=== PATIENT | male | born 1995 | race African-American/Black ===

== ENCOUNTER 2019-05-17 15:25 | Emergency (ER) | payer BC, SELFPAY ==
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
--- NOTE | 2019-05-17 15:28 | ECG_ITS ---
Measurements Intervals [place] Rate: 84 P: 59 WI: 154 QRS: 28 QRSD: 98 T: 12 QT: 324 QTc: 385 Interpretive Statements SINUS RHYTHM WITH SINUS ARRHYTHMIA LEFT ATRIAL ENLARGEMENT BASELINE ARTIFACT- I, III BORDERLINE ECG Electronically Signed On 05-17-2019 16:54:41 [employer] by Feliz Arias D.O.
[2019-05-17 15:31] VITALS: BP 151/98; PULSE 88; RESP 18; TEMP 36.8; O2SAT 99
[2019-05-17 15:38] VITALS: PULSE 89
[2019-05-17 15:50] LABS: Basophils Absolute Auto 0.1 K/mm3 (0.0-0.1); Basophils Percent Auto 0.9 % (0.2-1.2); Eosinophils Absolute Auto 0.2 K/mm3 (0-0.3); Eosinophils Percent Auto 1.9 % (0-4.4); Hematocrit 39.5 % (42.0-52.0); Hemoglobin 13.2 g/dL (14.0-18.0); Immature Granulocyte Absolute 0.04 K/mm3 (0.00-0.031); Immature Granulocyte Percent A 0.4 % (0-0.5); Lymphocytes Absolute Auto 2.77 K/mm3 (0.9-3.2); Lymphocytes Percent Auto 29.8 % (18.3-44.2); Mean Corpuscular HGB Conc 33.4 g/dl (32-36); Mean Corpuscular Hemoglobin 26.8 pg (26-34); Mean Corpuscular Volume 80.3 fl (80-100); Mean Platelet Volume 9.7 fl (7.4-10.4); Monocytes Absolute Auto 1.1 K/mm3 (0.1-0.6); Monocytes Percent Auto 11.8 % (2.6-8.5); Neutrophils Absolute Auto 5.1 K/mm3 (1.3-6.7); Neutrophils Percent Auto 55.2 % (45.5-73.1); Platelet Count Result 346 k/mm3 (150-375); Red Blood Count 4.92 M/mm3 (4.6-6.20); Red Cell Distribution Width 13.8 % (11.5-14.5); White Blood Count 9.3 K/mm3 (4.5-10.0)
[2019-05-17 15:59] LABS: Blood Urea Nitrogen 14 mg/dL (9-20); Calcium 8.9 mg/dL (8.4-10.2); Carbon Dioxide 29 mmol/L (22-30); Chloride 104 mmol/L (98-107); Estimated CRCL calculation 148 ml/min; Estimated Glomerular Filt Rate > 60; Glucose 85 mg/dL (75-110); Potassium 4.1 mmol/L (3.4-5.0); Sodium 140 mmol/L (137-145)
[2019-05-17 16:10] VITALS: O2SAT 99
[2019-05-17 16:10] LABS: Troponin I < 0.012 ng/mL (0.000-0.034)
[2019-05-17 16:13] LABS: Prothrombin Time 13.2 Seconds (11.1-14.7)
[2019-05-17 16:14] LABS: Partial Thromboplastin Time 29.4 SECONDS (22.3-36.8)
[2019-05-17] MEDS: ASPIRIN 81 MG CHEWABLE TABLET 324 MG PO (16:24)
--- NOTE | 2019-05-17 16:26 | ED.CHESTPAIN ---
HPI - Chest Pain General Chief Complaint: Chest Pain Stated Complaint: sob, cp Time Seen by Provider: 05/17/19 16:14 Source: patient Mode of arrival: ambulatory Limitations: no limitations History of Present Illness HPI narrative: A 23 y/o male presents to the ED with c/o right sided CP that radiates to his right flank. Pt states that the right sided CP started when he woke up this morning and has been constant since. The CP is aggravated with movement, but he does not note any alleviating factors. He denies dysuria and hematuria. Pt has no other complaints at this time. complaint: chest pain (Right sided) Onset (ago): hour(s) (Today) Timing of current episode: constant Onset: awoke with symptoms Pain location: right chest Pain radiation: other (Right flank) Relieving factors: nothing Exacerbating factors: movement Associated symptoms: other (None) Related Data Allergies Allergy/AdvReac Type Severity Reaction Status Date / Time No Known Allergies Allergy Verified 05/17/19 15:44 Review of Systems Review of Systems: All systems reviewed & are unremarkable except as noted in HPI and below Cardiovascular: Cardiovascular: Reports chest pain (Right sided that radiates to right flank) Genitourinary: Genitourinary: Denies hematuria and Denies dysuria PMFSH Past Medical History Medical History (Updated 05/17/19 @ 17:26 by Charlie Woods MD) Seasonal allergies Surgical History Surgical History (Updated 05/17/19 @ 16:34 by Mary Rubin) No pertinent past surgical history Social History Social History (Updated 05/17/19 @ 16:34 by Mary Rubin) Smoking status: Unknown if ever smoked Gender identity (if verbalized by the patient): Male Exam Const: General: healthy appearing, no acute distress and well developed Nutritional Appearance: well nourished Orientation/consciousness: patient oriented x3 (alert) and Other orientation findings (Alert) Limitations: no limitations HENMT: Head: normocephalic and atraumatic Ears: external ears normal General nose exam: No nasal discharge present and no epistaxis Face and sinus: face symmetric Mouth: Yes lip normal, Yes tongue normal and Yes moist mucous membranes Throat: other (No exudate, no erythema) Eyes: Conjunctivae: conjunctivae normal Sclera: sclerae normal EOM: EOMs intact bilaterally Neck: Neck: full ROM, no lymphadenopathy and supple Thyroid: thyroid normal Chest: Chest palpation & inspection: no tenderness Resp: Effort & Inspection: normal respiratory effort Auscultation: clear to auscultation bilaterally, no rales, no rhonchi, no wheezes and other (breath sounds equal) Cardio: Rate: regular rate Rhythm: regular rhythm Heart sounds: no gallops and no murmurs GI: Inspection: non-distended GI Palp: No abdominal tenderness (RUQ) and Yes Soft to palpation Auscultation: other (bowel sounds present) : General: Yes no CVA tenderness Back/Spine/Pelvis: Back: no CVA tenderness and other (Symptoms reproducible with twisting and laterally flexing torso) Thoracic/Lumbar Spine: thoracic and lumbar spine normal to inspection Skin: General skin exam: normal color and no rashes or lesions noted Neuro: General: patient oriented x3 (alert), moves all extremities and no focal motor deficits Cranial nerves: Yes facial symmetry Speech: normal speech Motor exam (neuro): Motor abnormalities not present Extrem: General: normal to inspection, full ROM and no pedal edema Psych: Affect: normal affect Course Vital Signs Vital signs: Vital Signs Temperature 36.8 C 05/17/19 15:31 Pulse Rate 88 05/17/19 15:31 Respiratory Rate 18 05/17/19 15:31 Blood Pressure 151/98 H 05/17/19 15:31 Pulse Oximetry 99 05/17/19 15:31 Temperature 36.8 C 05/17/19 15:31 Pulse Rate 89 05/17/19 15:38 Respiratory Rate 18 05/17/19 15:31 Blood Pressure 151/98 H 05/17/19 15:31 Pulse Oximetry 99 05/17/19 15:31 MDM - Chest Pain Lab Data Resul
[2019-05-17 16:53] LABS: Alanine Aminotransferase 22 U/L (4-50); Albumin Level 4.3 g/dL (3.5-5.1); Alkaline Phosphatase 68 U/L (38-126); Aspartate Amino Transferase 30 U/L (17-59); Bilirubin,Total 0.4 mg/dL (0.2-1.3); Lipase 85 U/L (23-300)
[2019-05-17 18:00] VITALS: BP 140/90; PULSE 86; RESP 14; O2SAT 99
== END 2019-05-17 18:05 | disposition home or self-care (01) ==
PROVIDERS: Emergency Medicine; Emergency Provider Emergency Medicine
DX: R07.89 Other chest pain (principal); R94.31 Abnormal electrocardiogram [ECG] [EKG]
CPT/HCPCS: 36415; 71046; 80048; 80076; 83690; 84484; 85025; 85610; 85730; 93005; 99284; A9270

== ENCOUNTER 2019-11-28 12:25 | Emergency (ER) | payer BC, SELFPAY ==
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
[2019-11-28 12:44] VITALS: BP 119/76; PULSE 82; RESP 17; TEMP 36.2; O2SAT 99
--- NOTE | 2019-11-28 12:44 | ECG_ITS ---
Measurements Intervals [place] Rate: 85 P: 50 [place]: 159 QRS: 21 QRSD: 93 T: 11 QT: 334 QTc: 399 Interpretive Statements SINUS RHYTHM POSSIBLE LEFT ATRIAL ENLARGEMENT BORDERLINE ECG Electronically Signed On 11-28-2019 13:46:55 CDT by Feliz Arias D.O.
[2019-11-28 12:57] LABS: Basophils Absolute Auto 0.1 K/mm3 (0.0-0.1); Basophils Percent Auto 0.8 % (0.2-1.2); Eosinophils Absolute Auto 0.3 K/mm3 (0-0.3); Hematocrit 41.5 % (42.0-52.0); Hemoglobin 13.9 g/dL (14.0-18.0); Immature Granulocyte Absolute 0.03 K/mm3 (0.00-0.031); Immature Granulocyte Percent A 0.4 % (0-0.5); Lymphocytes Absolute Auto 2.07 K/mm3 (0.9-3.2); Lymphocytes Percent Auto 24.8 % (18.3-44.2); Mean Corpuscular HGB Conc 33.5 g/dl (32-36); Mean Corpuscular Hemoglobin 26.8 pg (26-34); Mean Corpuscular Volume 80.1 fl (80-100); Monocytes Percent Auto 11.8 % (2.6-8.5); Neutrophils Absolute Auto 4.9 K/mm3 (1.3-6.7); Neutrophils Percent Auto 59.2 % (45.5-73.1); Platelet Count Result 364 k/mm3 (150-375); Red Blood Count 5.18 M/mm3 (4.6-6.20); Red Cell Distribution Width 13.9 % (11.5-14.5); White Blood Count 8.3 K/mm3 (4.5-10.0)
[2019-11-28 13:07] LABS: Prothrombin Time 13.3 Seconds (11.1-14.7)
[2019-11-28 13:08] LABS: Partial Thromboplastin Time 28.1 SECONDS (22.3-36.8)
[2019-11-28 13:09] LABS: Anion Gap 6 mmol/L (8-16); Blood Urea Nitrogen 10 mg/dL (9-20); Carbon Dioxide 28 mmol/L (22-30); Chloride 103 mmol/L (98-107); Estimated CRCL calculation 150 ml/min; Estimated Glomerular Filt Rate > 60; Glucose 108 mg/dL (75-110); Potassium 4.1 mmol/L (3.4-5.0); Sodium 137 mmol/L (137-145)
[2019-11-28 13:21] LABS: Troponin I < 0.012 ng/mL (0.000-0.034)
[2019-11-28 14:34] VITALS: BP 138/88; PULSE 86; RESP 17; O2SAT 98
[2019-11-28 14:35] VITALS: PULSE 88
--- NOTE | 2019-11-28 14:45 | ED.CHESTPAIN ---
HPI - Chest Pain General Chief Complaint: Chest Pain Stated Complaint: CP/BEE Time Seen by Provider: 11/28/19 14:26 History of Present Illness HPI narrative: Sharp substernal chest pain. First noticed 1 week ago. Worse over the ast 2 days. Increases with food. Associated with mild SOB. He has not tried anything for his symptoms. Related Data Allergies Allergy/AdvReac Type Severity Reaction Status Date / Time No Known Allergies Allergy Verified 11/28/19 12:50 Review of Systems Review of Systems: All systems reviewed & are unremarkable except as noted in HPI and below Constitutional: Constitutional: Denies chills and Denies fever(s) Cardiovascular: Cardiovascular: Denies chest pain Respiratory: Respiratory: Denies cough and Denies dyspnea Gastrointestinal: Gastrointestinal: Denies nausea and Denies vomiting Neurologic: Denies numbness and Denies weakness PMFSH Past Medical History Medical History Seasonal allergies Surgical History Surgical History No pertinent past surgical history Social History Social History Smoking status: Unknown if ever smoked Gender identity (if verbalized by the patient): Male Exam Const: General: no acute distress Orientation/consciousness: patient oriented x3 HENMT: Head: normal to inspection Neck: Neck: normal visual inspection and no lymphadenopathy Chest: Chest palpation & inspection: no tenderness Resp: Effort & Inspection: normal respiratory effort Auscultation: clear to auscultation bilaterally, no rales, no rhonchi and no wheezes Cardio: Jugular venous distension: no JVD Rate: regular rate Rhythm: regular rhythm Heart sounds: no murmurs GI: Inspection: non-distended GI Palp: Yes Soft to palpation and No Tenderness to palpation present (GI) Skin: General skin exam: normal color Neuro: General: patient oriented x3 and moves all extremities Speech: normal speech Extrem: General: no edema Psych: Appearance: well kempt Affect: normal affect Course Vital Signs Vital signs: Vital Signs Temperature 36.2 C L 11/28/19 12:44 Pulse Rate 82 11/28/19 12:44 Respiratory Rate 17 11/28/19 12:44 Blood Pressure 119/76 11/28/19 12:44 Pulse Oximetry 99 11/28/19 12:44 Temperature 36.2 C L 11/28/19 12:44 Pulse Rate 75 11/28/19 15:55 Respiratory Rate 16 11/28/19 15:55 Blood Pressure 138/88 11/28/19 15:55 Pulse Oximetry 98 11/28/19 15:55 MDM - Chest Pain MDM Narrative Medical decision making narrative: Feeling better after GI cocktail Medical Records Data Attestation: I reviewed the patient's medical records. Lab Data Attestation: I reviewed the patient's lab results. Result diagrams: 11/28/19 12:48 11/28/19 12:48 Labs: Lab Results 11/28/19 11/28/19 11/28/19 Range/Units 12:48 12:48 12:48 WBC 8.3 (4.5-10.0) K/mm3 RBC 5.18 (4.6-6.20) M/mm3 Hgb 13.9 L (14.0-18.0) g/dL Hct 41.5 L (42.0-52.0) % MCV 80.1 (80-100) fl MCH 26.8 (26-34) pg MCHC 33.5 (32-36) g/dl RDW 13.9 (11.5-14.5) % Plt Count 364 (150-375) k/mm3 MPV 10.0 (7.4-10.4) fl Immature Gran % (Auto) 0.4 (0-0.5) % Neut % (Auto) 59.2 (45.5-73.1) % Lymph % (Auto) 24.8 (18.3-44.2) % [place] % (Auto) 11.8 H (2.6-8.5) % Eos % (Auto) 3.0 (0-4.4) % Baso % (Auto) 0.8 (0.2-1.2) % Lymph # (Auto) 2.07 (0.9-3.2) K/mm3 [place] # (Auto) 1.0 H (0.1-0.6) K/mm3 Eos # (Auto) 0.3 (0-0.3) K/mm3 Baso # (Auto) 0.1 (0.0-0.1) K/mm3 Abs Immat Gran (auto) 0.03 (0.00-0.031) K/mm3 Absolute Neuts (auto) 4.9 (1.3-6.7) K/mm3 Absolute Nucleated RBC 0.0 (0.0-0.012) K/mm3 Nucleated RBC % 0.0 (0.0-0.2) % PT 13.3 (11.1-14.7) Seconds INR 1.0 APTT 28.1 (22.3-36.8) SECONDS Néstori
[2019-11-28] MEDS: ASPIRIN 81 MG CHEWABLE TABLET 324 MG PO (15:05)
[2019-11-28 15:08] VITALS: BP 133/89; PULSE 82; RESP 17; O2SAT 100
[2019-11-28 15:55] VITALS: BP 138/88; PULSE 75; RESP 16; O2SAT 98
== END 2019-11-28 16:01 | disposition home or self-care (01) ==
PROVIDERS: Emergency Medicine; Emergency Provider Emergency Medicine
DX: K21.9 Gastro-esophageal reflux disease without esophagitis (principal)
CPT/HCPCS: 36415; 71046; 80048; 84484; 85025; 85610; 85730; 93005; 99284; A9270

== ENCOUNTER 2020-02-17 03:10 | Emergency (ER) | payer BC, SELFPAY ==
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
[2020-02-17 03:13] VITALS: BP 143/85; PULSE 84; RESP 16; TEMP 36; O2SAT 99
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
[2020-02-17] MEDS: KETOROLAC (*BKC) 60 MG/2 ML VIAL IM (03:35)
[2020-02-17 04:39] VITALS: BP 140/89; PULSE 84; RESP 16; O2SAT 97
== END 2020-02-17 04:40 | disposition home or self-care (01) ==
PROVIDERS: Emergency Provider Emergency Medicine
DX: M25.512 Pain in left shoulder (principal); J45.909 Unspecified asthma, uncomplicated
CPT/HCPCS: 71046; 96372; 99283; J1885

== ENCOUNTER 2020-03-04 18:19 | Emergency (ER) | payer BC, SELFPAY ==
--- NOTE | ~2020-03-04 | CT_ITS ---
EXAMINATION: CT abdomen pelvis w con DATE: 03/04/2020 20:09 INDICATION: Epigastric pain TECHNIQUE: Computed tomography (CT) of the abdomen and pelvis was performed with 100 cc Omnipaque 350 intravenous contrast. The dose-length product was 1281.22 mGy-cm. Automated exposure control and ite rative reconstruction technique were employed. COMPARISON: None. FINDINGS: Lung bases are unremarkable. Heart size normal. No significant pleural or pericardial effus ion. No significant vascular abnormality. No lymphadenopathy. Subtle hypodensity right hepatic lobe, too small to characterize, possibly transient hepatic attenuat ion difference. The spleen, pancreas, adrenal glands and kidneys are unremarkable. Gallbladder is pre sent. Normal appendix. Gallbladder is present. Nonobstructive bowel gas pattern. No free air or free fluid. No acute osseous abnormality. IMPRESSION: 1. No acute abdominal abnormality. No findings to account for patient's symptoms. Reviewed, dictated and finalized at location A. IC TRANSIT SPECIALIST IMPRESSION: 1. No acute abdominal abnormality. No findings to account for patient's symptom s.
[2020-03-04 18:24] VITALS: BP 135/85; PULSE 121; RESP 16; TEMP 36.6; O2SAT 94
[2020-03-04 19:10] LABS: Basophils Absolute Auto 0.1 K/mm3 (0.0-0.1); Basophils Percent Auto 0.4 % (0.2-1.2); Eosinophils Absolute Auto 0.1 K/mm3 (0-0.3); Eosinophils Percent Auto 1.2 % (0-4.4); Hematocrit 41.3 % (42.0-52.0); Hemoglobin 13.9 g/dL (14.0-18.0); Immature Granulocyte Absolute 0.05 K/mm3 (0.00-0.031); Immature Granulocyte Percent A 0.4 % (0-0.5); Lymphocytes Absolute Auto 2.66 K/mm3 (0.9-3.2); Lymphocytes Percent Auto 22.9 % (18.3-44.2); Mean Corpuscular HGB Conc 33.7 g/dl (32-36); Mean Corpuscular Volume 80.2 fl (80-100); Mean Platelet Volume 9.6 fl (7.4-10.4); Monocytes Absolute Auto 1.5 K/mm3 (0.1-0.6); Monocytes Percent Auto 12.8 % (2.6-8.5); Neutrophils Absolute Auto 7.2 K/mm3 (1.3-6.7); Neutrophils Percent Auto 62.3 % (45.5-73.1); Platelet Count Result 360 k/mm3 (150-375); Red Blood Count 5.15 M/mm3 (4.6-6.20); Red Cell Distribution Width 14.4 % (11.5-14.5); White Blood Count 11.6 K/mm3 (4.5-10.0)
[2020-03-04 19:24] LABS: Alanine Aminotransferase 20 U/L (4-50); Albumin Level 4.2 g/dL (3.5-5.1); Alkaline Phosphatase 70 U/L (38-126); Anion Gap 8 mmol/L (8-16); Aspartate Amino Transferase 23 U/L (17-59); Bilirubin,Total 0.3 mg/dL (0.2-1.3); Blood Urea Nitrogen 14 mg/dL (9-20); Calcium 8.9 mg/dL (8.4-10.2); Carbon Dioxide 28 mmol/L (22-30); Chloride 103 mmol/L (98-107); Estimated CRCL calculation 154 ml/min; Estimated Glomerular Filt Rate > 60; Glucose 94 mg/dL (75-110); Lipase 67 U/L (23-300); Potassium 3.9 mmol/L (3.4-5.0); Sodium 139 mmol/L (137-145)
[2020-03-04 19:28] LABS: Add Urine Microscopic? YES; Appearance Urine Clear (Clear); Bilirubin Urine Negative (Negative); Blood Urine 1+ (Negative); Color Urine Yellow (Yellow); Glucose Urine UA Negative (Negative); Ketones Urine Negative (Negative); Leukocyte Esterase Ur Negative LEU/UL (Negative); Mucus Urine Rare /lpf; Nitrate Urine Negative (Negative); Protein Urine Negative (Negative); Specific Grav Ur 1.018 (1.001-1.035); Urobilinogen Urine Negative mg/dL (<2.0); WBC Urine 0-3 /hpf
--- NOTE | 2020-03-04 20:29 | ED.ABDPAIN ---
HPI - Abdominal Pain General Chief Complaint: Abdominal Pain Stated Complaint: shortness of breath Time Seen by Provider: 03/04/20 18:38 History of Present Illness HPI narrative: Patient is a 24-year-old male who presents ER with epigastric discomfort. Feels like fullness in his upper abdomen that radiates around to his back. Is worse with leaning forward. He has bloating and fullness of the entirety of his abdomen. Reports some urinary frequency but no urgency. No hematuria or dysuria. He has no diarrhea or constipation. Additionally reports no chest pain or shortness of breath or productive cough. Has not had similar symptoms in the past. Has not found any way to alleviate his discomfort. Related Data Allergies Allergy/AdvReac Type Severity Reaction Status Date / Time No Known Allergies Allergy Verified 03/04/20 18:32 Review of Systems Review of Systems: All systems reviewed & are unremarkable except as noted in HPI and below Constitutional: Constitutional: Denies chills, Denies fever(s) and Denies weakness ENT: Denies nasal congestion and Denies sore throat Cardiovascular: Cardiovascular: Denies chest pain and Denies radiating jaw, neck or arm pain Respiratory: Respiratory: Denies cough, Denies dyspnea and Denies wheezing Gastrointestinal: Gastrointestinal: Reports abdominal pain, Reports bloating, Denies constipation, Denies diarrhea, Denies nausea and Denies vomiting Genitourinary: Genitourinary: Denies hematuria, Denies dysuria and Denies urinary frequency PMFSH Past Medical History Medical History (Updated 03/04/20 @ 20:32 by Rojelio Jean MD) Seasonal allergies Surgical History Surgical History No pertinent past surgical history Social History Social History Smoking status: Unknown if ever smoked Gender identity (if verbalized by the patient): Male Exam Narrative: Exam Narrative: GENERAL: Well-appearing, well-nourished, and in no acute distress. HEAD: Normocephalic, atraumatic. CHEST: Clear to auscultation. No respiratory distress. HEART: Regular rate and rhythm. Normal peripheral pulses. ABDOMEN: Soft, nontender, nondistended. EXTREMITIES: Normal range of motion. No edema. SKIN: Warm, dry, no rash. NEURO: Alert and oriented x3. PSYCH: Normal mood and affect. Course Vital Signs Vital signs: Vital Signs Temperature 97.9 F 03/04/20 18:24 Pulse Rate 121 H 03/04/20 18:24 Respiratory Rate 16 03/04/20 18:24 Blood Pressure 135/85 03/04/20 18:24 Pulse Oximetry 94 03/04/20 18:24 Temperature 98.2 F 03/04/20 20:36 Pulse Rate 95 03/04/20 20:36 Respiratory Rate 18 03/04/20 20:36 Blood Pressure 124/87 03/04/20 20:36 Pulse Oximetry 99 03/04/20 20:36 MDM - Abdominal Pain Lab Data Result diagrams: 03/04/20 19:04 03/04/20 19:04 Labs: Lab Results 03/04/20 03/04/20 03/04/20 Range/Units 19:04 19:04 19:10 WBC 11.6 H (4.5-10.0) K/mm3 RBC 5.15 (4.6-6.20) M/mm3 Hgb 13.9 L (14.0-18.0) g/dL Hct 41.3 L (42.0-52.0) % MCV 80.2 (80-100) fl MCH 27.0 (26-34) pg MCHC 33.7 (32-36) g/dl RDW 14.4 (11.5-14.5) % Plt Count 360 (150-375) k/mm3 MPV 9.6 (7.4-10.4) fl Immature Gran % (Auto) 0.4 (0-0.5) % Neut % (Auto) 62.3 (45.5-73.1) % Lymph % (Auto) 22.9 (18.3-44.2) % [place] % (Auto) 12.8 H (2.6-8.5) % Eos % (Auto) 1.2 (0-4.4) % Baso % (Auto) 0.4 (0.2-1.2) % Lymph # (Auto) 2.66 (0.9-3.2) K/mm3 [place] # (Auto) 1.5 H (0.1-0.6) K/mm3 Eos # (Auto) 0.1 (0-0.3) K/mm3 Baso # (Auto) 0.1 (0.0-0.1) K/mm3 Abs Immat Gran (auto) 0.05 H (0.00-0.031) K/mm3 Absolute Neuts (auto) 7.2 H (1.3-6.7) K/mm3 Absolute Nucleated RBC 0.0 (0.0-0.012) K/mm3 Nucleated RBC % 0.0 (0.0-0.2) % Sodium 139 (137-145) mmol/L Potassium 3.
[2020-03-04 20:36] VITALS: BP 124/87; PULSE 95; RESP 18; TEMP 36.8; O2SAT 99
[2020-03-04 21:10] VITALS: BP 124/87; PULSE 95; RESP 18; TEMP 36.8; O2SAT 99
== END 2020-03-04 21:10 | disposition home or self-care (01) ==
PROVIDERS: Emergency Provider Emergency Medicine
DX: R10.13 Epigastric pain (principal)
CPT/HCPCS: 36415; 74177; 80053; 81001; 83690; 85025; 99284; Q9967

== ENCOUNTER 2020-06-30 08:41 | Emergency (ER) | payer BC, SELFPAY ==
[2020-06-30 08:43] VITALS: BP 143/87; PULSE 96; RESP 18; TEMP 36; O2SAT 100
--- NOTE | 2020-06-30 11:02 | ED.GENADULT ---
HPI - General Adult General Chief complaint: Unspecified Stated complaint: throat tightness Time Seen by Provider: 06/30/20 10:49 Source: patient Mode of arrival: ambulatory Limitations: no limitations History of Present Illness HPI narrative: This is a 24 year old male that presents to the ER for sore throat since this morning. Reports pain with swallowing. Also reports fever. Denies cough, congestion, or otalgia. Related Data Allergies Allergy/AdvReac Type Severity Reaction Status Date / Time No Known Allergies Allergy Verified 06/30/20 08:55 Review of Systems Review of Systems: Narrative: CONSTITUTIONAL: Reports fever ENT: Reports sore throat. Denies rhinorrhea, congestion RESPIRATORY: Denies cough or dyspnea. All systems reviewed & are unremarkable except as noted in HPI and below PMFSH Past Medical History Medical History (Updated 06/30/20 @ 11:09 by Isadora Branham PA-C) Seasonal allergies Surgical History Surgical History No pertinent past surgical history Social History Social History Smoking status: Unknown if ever smoked Gender identity (if verbalized by the patient): Male Exam Narrative: Exam Narrative: GENERAL: Well-appearing, well-nourished, and in no acute distress. HEAD: Normocephalic, atraumatic. EYES: EOMI. ENT: Nares clear, no rhinorrhea or epistaxis. Mucous membranes moist. Oropharynx with tonsillar hypertrophy and exudate. Uvula midline. No trismus. Bilateral TMs pearly zendejas non-bulging NECK: Supple. No adenopathy or masses. CHEST: Clear to auscultation. No respiratory distress. No wheezes rales or rhonchi HEART: Regular rate and rhythm. No murmur heard. Normal peripheral pulses. EXTREMITIES: Normal range of motion. No edema. SKIN: Warm, dry, no rash. NEURO: No focal deficits. Alert and oriented x3. PSYCH: Normal mood and affect Course Vital Signs Vital signs: Vital Signs Temperature 96.8 F L 06/30/20 08:43 Pulse Rate 96 06/30/20 08:43 Respiratory Rate 18 06/30/20 08:43 Blood Pressure 143/87 H 06/30/20 08:43 Pulse Oximetry 100 06/30/20 08:43 Temperature 96.8 F L 06/30/20 08:43 Pulse Rate 96 06/30/20 08:43 Respiratory Rate 18 06/30/20 08:43 Blood Pressure 143/87 H 06/30/20 08:43 Pulse Oximetry 100 06/30/20 08:43 Medical Decision Making MDM Narrative Medical decision making narrative: Patient presents the emergency department for sore throat and fever this morning. No other associated symptoms. Exam does appear consistent with strep pharyngitis, although he did have a negative rapid strep. I would like to start patient on antibiotics. He is to follow-up with primary care doctor. He was given warnings to return to the ER Vital Signs Vital Signs: Vital Signs Temperature 96.8 F L 06/30/20 08:43 Pulse Rate 96 06/30/20 08:43 Respiratory Rate 18 06/30/20 08:43 Blood Pressure 143/87 H 06/30/20 08:43 Pulse Oximetry 100 06/30/20 08:43 Temperature 96.8 F L 06/30/20 08:43 Pulse Rate 96 06/30/20 08:43 Respiratory Rate 18 06/30/20 08:43 Blood Pressure 143/87 H 06/30/20 08:43 Pulse Oximetry 100 06/30/20 08:43 Lab Data Lab results reviewed: Yes I reviewed the patient's lab results. Labs: Strep Screen Presumptive Negative *(Reference Range: Negative)* Critical Care Time Critical Care Time Critical Care Time: No Discharge Plan Discharge Clinical Impression: Pharyngitis Qualifiers: Pharyngitis/tonsillitis etiology: unspecified etiology Qualified Code(s): J02.9 - Acute pharyngitis, unspecified Patient Disposition: Home, Self-Care Condition: Stable Instructions: Antibiotic Form, Pharyngitis (ED) Additional Instructions: Return to the emergency department for worsening symptoms, or any other concerns Remain well-hydrated, get pl
== END 2020-06-30 11:19 | disposition home or self-care (01) ==
PROVIDERS: Emergency Provider Emergency Medicine; PCP Family Medicine
DX: J02.9 Acute pharyngitis, unspecified (principal)
CPT/HCPCS: 87081; 87880; 99283

== ENCOUNTER 2020-09-30 11:37 | Emergency (ER) | payer BC, SELFPAY ==
[2020-09-30 11:47] VITALS: PULSE 71; RESP 16; TEMP 36.9; O2SAT 97
[2020-09-30 12:26] LABS: Add Urine Microscopic? YES; Appearance Urine Clear (Clear); Bilirubin Urine Negative (Negative); Blood Urine 1+ (Negative); Color Urine Yellow (Yellow); Glucose Urine UA Negative (Negative); Ketones Urine Negative (Negative); Leukocyte Esterase Ur Negative LEU/UL (Negative); Mucus Urine Rare /lpf; Nitrate Urine Negative (Negative); Protein Urine Negative (Negative); RBC Urine 0-2 /hpf (0-2); Urobilinogen Urine Negative mg/dL (<2.0); WBC Urine 0-3 /hpf
--- NOTE | 2020-09-30 12:59 | ED.GENADULT ---
HPI - General Adult General Chief complaint: Urogenital-Male Stated complaint: STD CHECK Time Seen by Provider: 09/30/20 12:02 Source: patient and RN notes reviewed Mode of arrival: ambulatory Limitations: no limitations History of Present Illness HPI narrative: Patient is a 25-year-old male who presents with concern for wanting STD checks denies any symptoms or exposures on arrival is in no distress has no other complaints Related Data Allergies Allergy/AdvReac Type Severity Reaction Status Date / Time No Known Allergies Allergy Verified 06/30/20 08:55 Review of Systems Review of Systems: All systems reviewed & are unremarkable except as noted in HPI and below PMFSH Past Medical History Medical History (Updated 09/30/20 @ 13:01 by Manny Bran PA-C) Seasonal allergies Surgical History Surgical History No pertinent past surgical history Social History Social History Smoking status: Unknown if ever smoked Gender identity (if verbalized by the patient): Male Exam Narrative: Exam Narrative: GENERAL: Well-appearing, well-nourished, and in no acute distress. HEAD: Normocephalic, atraumatic. EYES: PERRLA and EOMI. ENT: Nares clear, no rhinorrhea or epistaxis. Mucous membranes moist. CHEST: Clear to auscultation. No respiratory distress. No wheezes rales or rhonchi HEART: Regular rate and rhythm. No murmur heard. EXTREMITIES: Normal range of motion. No edema. SKIN: Warm, dry, no rash. NEURO: No focal deficits. Alert and oriented x3. PSYCH: Normal mood and affect. Course Course Emergency Course: Patient in the room no distress aware of case findings treatment plan diagnosis will follow up with primary care to obtain his Vital Signs Vital signs: Vital Signs Temperature 98.4 F 09/30/20 11:47 Pulse Rate 71 09/30/20 11:47 Respiratory Rate 16 09/30/20 11:47 Pulse Oximetry 97 09/30/20 11:47 Temperature 98.4 F 09/30/20 11:47 Pulse Rate 71 09/30/20 11:47 Respiratory Rate 16 09/30/20 11:47 Pulse Oximetry 97 09/30/20 11:47 Medical Decision Making MDM Narrative Medical decision making narrative: Patient presented with desire for STD testing will follow up as instructed for results Vital Signs Vital Signs: Vital Signs Temperature 98.4 F 09/30/20 11:47 Pulse Rate 71 09/30/20 11:47 Respiratory Rate 16 09/30/20 11:47 Pulse Oximetry 97 09/30/20 11:47 Temperature 98.4 F 09/30/20 11:47 Pulse Rate 71 09/30/20 11:47 Respiratory Rate 16 09/30/20 11:47 Pulse Oximetry 97 09/30/20 11:47 Lab Data Labs: Lab Results 09/30/20 09/30/20 Range/Units 12:13 12:13 Urine Color Yellow (Yellow) Urine Appearance Clear (Clear) Urine pH 6.0 (5.0-9.0) Ur Specific [place] 1.020 (1.001-1.035) Urine Protein Negative (Negative) mg/dL Urine Glucose (UA) Negative (Negative) mg/dL Urine Ketones Negative (Negative) mg/dL Ur Blood (Man) 1+ H (Negative) Urine Nitrate Negative (Negative) Urine Bilirubin Negative (Negative) Urine Urobilinogen Negative (<2.0) mg/dL Leukocyte Esterase Rfl Negative (Negative) [place]/UL Urine RBC 0-2 (0-2) /hpf Urine WBC 0-3 /hpf Urine Mucus Rare /lpf C.trachomatis RNA (TMA) Pending N.gonorrhoeae RNA (TMA) Pending Discharge Plan Discharge Clinical Impression: Urethritis Patient Disposition: Home, Self-Care Condition: Stable Instructions: Antibiotic Form, Sexually Transmitted Diseases (ED) Additional Instructions: Follow up with your primary care doctor in 3 to 5 days to obtain your results. Go to ER for worsening pain, nausea/vomitting, fever/chills, penile discharge, chest pain, shortness of breath, blood in stools or urine, etc. or any other concerns. Take any prescribed medications as directed. If you do not have a drug al
[2020-09-30 13:09] VITALS: BP 122/91; PULSE 80; RESP 12; O2SAT 99
== END 2020-09-30 13:10 | disposition home or self-care (01) ==
PROVIDERS: Emergency Medicine Emergency Medical Services; Emergency Provider Emergency Medicine
DX: N34.2 Other urethritis (principal)
CPT/HCPCS: 81001; 87491; 87591; 99283

== ENCOUNTER 2020-11-09 12:10 | Emergency (ER) | payer BC, SELFPAY ==
[2020-11-09 12:12] VITALS: BP 126/89; PULSE 88; RESP 16; TEMP 36.9; O2SAT 99
[2020-11-09 15:05] VITALS: BP 134/84; PULSE 60; RESP 20; TEMP 36.4; O2SAT 98
--- NOTE | 2020-11-09 16:56 | ED.EYEPROB ---
HPI - Eye Problem General Chief complaint: Eye Problems Stated complaint: RIGHT EYE PAIN Time Seen by Provider: 11/09/20 16:09 Source: patient Mode of arrival: ambulatory Limitations: no limitations History of Present Illness HPI Narrative: Patient is a 25-year-old male complaining of right eye redness, irritation, accompanied by sore throat that started last night. Patient also states that he felt febrile yesterday. Patient denies any chest pain, shortness of breath, cough, nasal congestion or rash. Patient denies any injury to the eye. Related Data Allergies Allergy/AdvReac Type Severity Reaction Status Date / Time No Known Allergies Allergy Verified 11/09/20 15:05 Review of Systems Review of Systems: All systems reviewed & are unremarkable except as noted in HPI and below Constitutional: Constitutional: Denies body ache(s), Denies chills, Denies excessive sweating, Denies fatigue, Denies fever(s), Denies headache(s), Denies lethargy, Denies malaise, Denies weakness and Denies weight loss Eyes: Eyes: Denies blurry vision, Denies change in vision and Denies loss of vision ENT: Denies dizziness, Denies ear discharge, Denies headache(s), Denies lip swelling, Denies epistaxis, Denies nasal congestion, Denies neck pain and Denies tongue swelling Cardiovascular: Cardiovascular: Denies chest pain, Denies chest pain at rest, Denies chest pain with activity, Denies diaphoresis, Denies rapid heart rate, Denies edema, Denies irregular heart rhythm, Denies lightheadedness, Denies palpitations, Denies dyspnea and Denies dyspnea on exertion Respiratory: Respiratory: Denies chest congestion, Denies cough, Denies hemoptysis, Denies dyspnea and Denies dyspnea on exertion Gastrointestinal: Gastrointestinal: Denies abdominal pain, Denies melena, Denies hematochezia, Denies diarrhea, Denies nausea, Denies vomiting and Denies hematemesis Musculoskeletal: Musculoskeletal: Denies abnormal gait, Denies deformity, Denies joint swelling, Denies limited range of motion, Denies neck pain and Denies numbness Neurologic: Denies Abnormal speech present, Denies abnormal gait, Denies confusion, Denies dizziness, Denies headache(s), Denies focal weakness, Denies loss of vision, Denies numbness, Denies Other visual disturbances, Denies Sensory deficit (Neuro) and Denies weakness Psychiatric: Psychiatric: Denies confusion, Denies depression, Denies auditory hallucinations, Denies homicidal ideation and Denies suicidal ideation Endocrine: Endocrine: Denies cold intolerance, Denies excessive sweating, Denies fatigue, Denies heat intolerance and Denies palpitations Hematologic/Lymphatic: Hematologic/Lymphatic: Denies easy bleeding and Denies easy bruising Allergic/Immunologic: Allergic/Immunologic: Denies lip swelling, Denies throat swelling and Denies tongue swelling PMFSH Past Medical History Medical History (Updated 11/09/20 @ 18:04 by Clayton Allen MD) Seasonal allergies Surgical History Surgical History No pertinent past surgical history Social History Social History Smoking status: Unknown if ever smoked Gender identity (if verbalized by the patient): Male Comments Past medical history: None Family history: Hypertension Social history: Non-smoker no EtOH or drug use Exam Const: General: cooperative, healthy appearing, comfortable, no acute distress, well developed, alert and awake; No confusion Orientation/consciousness: oriented to person, oriented to place, oriented to time, patient oriented x3 and No confusion Limitations: no limitations HENMT: Head: normal to inspection, normocephalic and atraumatic Ears: hearing grossly normal bilaterally, TM normal on the right and TM normal on the left General nose exam: Normal external nose present, Normal nares present and No nasal discharge present Face and sinus: normal facia
[2020-11-09 18:15] VITALS: BP 130/78; PULSE 69; RESP 18; O2SAT 98
== END 2020-11-09 18:15 | disposition home or self-care (01) ==
PROVIDERS: Emergency Provider Emergency Medicine
DX: J02.9 Acute pharyngitis, unspecified (principal); H10.89 Other conjunctivitis
CPT/HCPCS: 87081; 87880; 96372; 99283; J1100

== ENCOUNTER 2021-02-01 15:16 | Emergency (ER) | payer BC, SELFPAY ==
[2021-02-01 15:51] VITALS: BP 123/79; PULSE 103; RESP 18; TEMP 36.3; O2SAT 97
--- NOTE | 2021-02-01 18:22 | ED.GENADULT ---
HPI - General Adult General Chief complaint: Eye Problems Stated complaint: Eye problems. Time Seen by Provider: 02/01/21 17:08 Source: patient Mode of arrival: ambulatory Limitations: no limitations History of Present Illness HPI narrative: Patient is 25-year-old male presenting with chief complaint of bilateral eye redness, tenderness,tearing, itching and burning over the past 2 days. Patient reports that this happened to him in the past and resolved with eyedrops. Patient denies any foreign bodies or injuries to his eyes. Patient denies any flashes or floaters. Patient denies any nausea, vomiting, diarrhea, head injury. Related Data Allergies Allergy/AdvReac Type Severity Reaction Status Date / Time No Known Allergies Allergy Verified 11/09/20 15:05 Review of Systems Review of Systems: CONSTITUTIONAL: Denies fever, chills, or sweats. EYES: Reports redness and tearing ENT: Denies rhinorrhea, congestion, sore throat, or otalgia. CARDIOVASCULAR: Denies chest pain, palpitations, or edema. RESPIRATORY: Denies cough or dyspnea. GASTROINTESTINAL: Denies abdominal pain, nausea, vomiting, or diarrhea. GENITOURINARY: Denies dysuria or hematuria. SKIN: Denies rash or itching. MUSCULOSKELETAL: Denies back pain, joint pain, or myalgia. NEUROLOGIC: Denies headache, numbness, dizziness, or weakness. PSYCHIATRIC: Denies anxiety or depression. [facility] Past Medical History Medical History (Updated 02/01/21 @ 18:16 by Lobo Arellano PA-C) Seasonal allergies Surgical History Surgical History No pertinent past surgical history Social History Social History Smoking status: Unknown if ever smoked Gender identity (if verbalized by the patient): Male Exam Narrative: GENERAL: Well-appearing, well-nourished. HEAD: Normocephalic, atraumatic. EYES: PERRLA and EOMI. bilateral subconjunctiva erythematous with clear tearing. No corneal abrasions noted with fluorescein stain however uptake to subconjunctiva. NECK: Supple. No adenopathy or masses. No vertebral tenderness or loss of ROM. CHEST: Clear to auscultation. No respiratory distress. No wheezes rales or rhonchi EXTREMITIES: No acute changes in ROM. No edema. SKIN: Warm, dry, no rash. NEURO: No focal deficits. Alert and oriented x3. PSYCH: Normal mood and affect. Course Vital Signs Vital signs: Vital Signs Temperature 97.3 F L 02/01/21 15:51 Pulse Rate 103 H 02/01/21 15:51 Respiratory Rate 18 02/01/21 15:51 Blood Pressure 123/79 02/01/21 15:51 Pulse Oximetry 97 02/01/21 15:51 Temperature 97.3 F L 02/01/21 15:51 Pulse Rate 78 02/01/21 18:37 Respiratory Rate 18 02/01/21 18:37 Blood Pressure 118/75 02/01/21 18:37 Pulse Oximetry 100 02/01/21 18:37 Medical Decision Making MDM Narrative Medical decision making narrative: Patient appears to be having allergic response. Patient will be prescribed Zaditor. Patient states that his eyes have not been crusted completely shut. Patient will be prescribed Zaditor and ofloxacin. Patient does not wear contact lenses and has been instructed to keep things out of his eyes. Patient been instructed to follow-up with resource manager as optometry for further evaluation and management of his symptoms. Patient has been told to call tomorrow to schedule follow-up appointment. Vital Signs Vital Signs: Vital Signs Temperature 97.3 F L 02/01/21 15:51 Pulse Rate 103 H 02/01/21 15:51 Respiratory Rate 18 02/01/21 15:51 Blood Pressure 123/79 02/01/21 15:51 Pulse Oximetry 97 02/01/21 15:51 Temperature 97.3 F L 02/01/21 15:51 Pulse Rate 78 02/01/21 18:37 Respiratory Rate 18 02/01/21 18:37 Blood Pressure 118/75 02/01/21 18:37 Pulse Oximetry 100 02/01/21 18:37 Discharge Plan Discharge Clinical Impression: Acute allergic conjunctivitis Qualifiers: Alissa
[2021-02-01 18:37] VITALS: BP 118/75; PULSE 78; RESP 18; O2SAT 100
== END 2021-02-01 18:38 | disposition home or self-care (01) ==
PROVIDERS: Emergency Provider Emergency Medicine
DX: H10.13 Acute atopic conjunctivitis, bilateral (principal)
CPT/HCPCS: 99283; A9270

== ENCOUNTER 2021-05-28 18:37 | Emergency (ER) | payer BC, SELFPAY ==
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
[2021-05-28 18:39] VITALS: BP 143/77; PULSE 88; RESP 17; TEMP 36.6; O2SAT 98
--- NOTE | 2021-05-28 18:49 | ECG_ITS ---
Measurements Intervals [place] Rate: 77 P: 47 TX: 151 QRS: 20 QRSD: 95 T: 11 QT: 349 QTc: 397 Interpretive Statements SINUS RHYTHM NORMAL ECG COMPARED TO ECG 11/28/2019 12:33:17 NO SIGNIFICANT CHANGES Electronically Signed On 06-03-2021 15:40:16 CDT by Jaison Zamora M.D.
--- NOTE | 2021-05-28 18:55 | ED.CHESTPAIN ---
HPI - Chest Pain General Chief Complaint: Chest Pain Stated Complaint: chest pain Time Seen by Provider: 05/28/21 18:49 History of Present Illness HPI narrative: 25-year-old male presents emergency room with gradual onset of right anterior chest pain that radiates into his back. Describes pain as a heaviness feeling, and has been present for 2 days. Patient states pain is reproducible with movements, deep breathing, and palpation. Patient states that he recently was diagnosed with asthma, and his rescue inhaler is giving him some mild relief. Denies recent upper respiratory infection, cough. Denies injury or trauma. Related Data Allergies Allergy/AdvReac Type Severity Reaction Status Date / Time No Known Allergies Allergy Verified 11/09/20 15:05 Review of Systems Review of Systems: CONSTITUTIONAL: Denies fever, chills, or sweats. EYES: Denies visual changes, redness, or discharge. ENT: Denies rhinorrhea, congestion, sore throat, or otalgia. CARDIOVASCULAR: Reports chest pain. denies palpitations, or edema. RESPIRATORY: Denies cough or dyspnea. GASTROINTESTINAL: Denies abdominal pain, nausea, vomiting, or diarrhea. GENITOURINARY: Denies dysuria or hematuria. SKIN: Denies rash or itching. MUSCULOSKELETAL: Denies back pain, joint pain, or myalgia. NEUROLOGIC: Denies headache, numbness, dizziness, or weakness. PSYCHIATRIC: Denies anxiety or depression. [facility] Past Medical History Medical History (Updated 05/28/21 @ 20:20 by Jaison Blackwood APRN) Seasonal allergies Surgical History Surgical History No pertinent past surgical history Social History Social History Smoking status: Unknown if ever smoked Gender identity (if verbalized by the patient): Male Exam Narrative: GENERAL: Well-appearing, well-nourished, and in no acute distress. HEAD: Normocephalic, atraumatic. EYES: PERRLA and EOMI. ENT: Nares clear, no rhinorrhea or epistaxis. Mucous membranes moist. NECK: Supple. No adenopathy or masses. No carotid bruits or JVD CHEST: Clear to auscultation. No respiratory distress. No wheezes rales or rhonchi; costochondral pain right anterior chest HEART: Regular rate and rhythm. No murmur heard. Normal peripheral pulses. ABDOMEN: Soft, nontender, nondistended, normal active bowel sounds. EXTREMITIES: Normal range of motion. No edema. SKIN: Warm, dry, no rash. NEURO: No focal deficits. Alert and oriented x3. PSYCH: Normal mood and affect. Course Vital Signs Vital signs: Vital Signs Temperature 36.6 C 05/28/21 18:39 Pulse Rate 88 05/28/21 18:39 Respiratory Rate 17 05/28/21 18:39 Blood Pressure 143/77 H 05/28/21 18:39 Pulse Oximetry 98 05/28/21 18:39 Temperature 36.6 C 05/28/21 18:39 Pulse Rate 88 05/28/21 18:39 Respiratory Rate 17 05/28/21 18:39 Blood Pressure 143/77 H 05/28/21 18:39 Pulse Oximetry 98 05/28/21 18:39 MDM - Chest Pain MDM Narrative Medical decision making narrative: 25-year-old male presents emergency room with complaints of reproducible chest pain for several days. Patient was given 30 mg of IV Toradol, states pain has been relieved. CBC and CMP were unremarkable. Troponin was negative. chest x-ray showed no acute abnormalities. Because of patient's symptoms is likely costochondritis. We will send patient home with a course of anti-inflammatories and have him follow-up PCP Differential Diagnosis Differential diagnosis: Likely costochondritis and chest pain Lab Data Attestation: I reviewed the patient's lab results. Result diagrams: 05/28/21 19:41 05/28/21 19:41 Labs: Lab Results 05/28/21 05/28/21 05/28/21 Range/Units 19:41 19:41 19:41 WBC 8.1 (4.5-10.0) K/mm3 RBC 5.02 (4.6-6.20) M/mm3 Hgb 13.2 L (14.0-18.0) g/dL Hct 40.6 L (42.0-52.0) % MCV 80.9 (80-100) fl MCH 26.3 (26-34)
[2021-05-28] MEDS: KETOROLAC 30 MG/ML VIAL (*BKC) IV PUSH (19:20)
[2021-05-28 19:53] LABS: Basophils Absolute Auto 0.1 K/mm3 (0.0-0.1); Basophils Percent Auto 0.6 % (0.2-1.2); Eosinophils Absolute Auto 0.2 K/mm3 (0-0.3); Eosinophils Percent Auto 2.2 % (0-4.4); Hematocrit 40.6 % (42.0-52.0); Hemoglobin 13.2 g/dL (14.0-18.0); Immature Granulocyte Absolute 0.02 K/mm3 (0.00-0.031); Immature Granulocyte Percent A 0.2 % (0-0.5); Lymphocytes Absolute Auto 2.64 K/mm3 (0.9-3.2); Lymphocytes Percent Auto 32.6 % (18.3-44.2); Mean Corpuscular HGB Conc 32.5 g/dl (32-36); Mean Corpuscular Hemoglobin 26.3 pg (26-34); Mean Corpuscular Volume 80.9 fl (80-100); Mean Platelet Volume 10.1 fl (7.4-10.4); Monocytes Absolute Auto 0.9 K/mm3 (0.1-0.6); Monocytes Percent Auto 11.1 % (2.6-8.5); Neutrophils Absolute Auto 4.3 K/mm3 (1.3-6.7); Neutrophils Percent Auto 53.3 % (45.5-73.1); Platelet Count Result 363 k/mm3 (150-375); Red Blood Count 5.02 M/mm3 (4.6-6.20); Red Cell Distribution Width 14.6 % (11.5-14.5); White Blood Count 8.1 K/mm3 (4.5-10.0)
[2021-05-28 20:06] LABS: Alanine Aminotransferase 17 U/L (4-50); Albumin Level 4.1 g/dL (3.5-5.1); Alkaline Phosphatase 75 U/L (38-126); Anion Gap 4 mmol/L (8-16); Aspartate Amino Transferase 28 U/L (17-59); Bilirubin,Total 0.3 mg/dL (0.2-1.3); Blood Urea Nitrogen 13 mg/dL (9-20); Calcium 8.7 mg/dL (8.4-10.2); Carbon Dioxide 30 mmol/L (22-30); Chloride 104 mmol/L (98-107); Estimated Glomerular Filt Rate > 60; Glucose 95 mg/dL (65-110); Potassium 3.8 mmol/L (3.4-5.0); Sodium 138 mmol/L (137-145)
[2021-05-28 20:08] LABS: D Dimer 0.25 ug/mL (<0.48)
[2021-05-28 20:15] LABS: Troponin I < 0.012 ng/mL (0.000-0.034)
[2021-05-28 20:29] VITALS: BP 121/78; PULSE 72; RESP 16; O2SAT 99
== END 2021-05-28 20:31 | disposition home or self-care (01) ==
PROVIDERS: Emergency Provider Nurse Practitioner Family
DX: M94.0 Chondrocostal junction syndrome [Tietze] (principal); J45.909 Unspecified asthma, uncomplicated
CPT/HCPCS: 36415; 71046; 80053; 84484; 85025; 85380; 93005; 96374; 99284; J1885

== ENCOUNTER 2021-08-09 17:13 | Emergency (ER) | payer BC, SELFPAY ==
[2021-08-09 17:15] VITALS: BP 133/82; PULSE 95; RESP 18; TEMP 36.4; O2SAT 98
--- NOTE | 2021-08-09 17:36 | ED.EXTPRO ---
HPI - Extremity Problem General Chief complaint: Extremity Problem,Nontraumatic Stated complaint: back, neck and groin pain Time Seen by Provider: 08/09/21 17:22 History of Present Illness HPI Narrative: 25-year-old male presents the emergency room with multiple complaints. Patient states he woke up this morning experiencing a right shoulder pain and left groin pain. Patient states the right shoulder pain extends from his mid cervical spine over to shoulder and into his neck. Patient states the pain is worse with right shoulder range of motion. Patient denies any injury or trauma. Patient denies any radicular pain. Patient denies any decrease in strength. Patient also complaining of left inguinal pain that is worse when he walks. Patient denies any dysuria, denies any unsafe sex habits, or testicular pain. Patient also reports a recent episode of diarrhea. Related Data Allergies Allergy/AdvReac Type Severity Reaction Status Date / Time No Known Allergies Allergy Verified 11/09/20 15:05 Review of Systems Review of Systems: CONSTITUTIONAL: Denies fever, chills, or sweats. EYES: Denies visual changes, redness, or discharge. ENT: Denies rhinorrhea, congestion, sore throat, or otalgia. CARDIOVASCULAR: Denies chest pain, palpitations, or edema. RESPIRATORY: Denies cough or dyspnea. GASTROINTESTINAL: Denies abdominal pain, nausea, vomiting, or diarrhea. GENITOURINARY: Reports left inguinal pain SKIN: Denies rash or itching. MUSCULOSKELETAL: Reports right shoulder pain NEUROLOGIC: Denies headache, numbness, dizziness, or weakness. PSYCHIATRIC: Denies anxiety or depression. PMFSH Past Medical History Medical History (Updated 08/09/21 @ 18:32 by Jaison Blackwood APRN) Seasonal allergies Surgical History Surgical History No pertinent past surgical history Social History Social History Smoking status: Unknown if ever smoked Gender identity (if verbalized by the patient): Male Exam Narrative: GENERAL: Well-appearing, well-nourished, and in no acute distress. HEAD: Normocephalic, atraumatic. EYES: PERRLA and EOMI. CHEST: Clear to auscultation. No respiratory distress. No wheezes rales or rhonchi HEART: Regular rate and rhythm. No murmur heard. Normal peripheral pulses. ABDOMEN: Soft, nontender, nondistended, normal active bowel sounds. Multiple mobile indurated masses in the left inguinal canal, with no surrounding erythema. EXTREMITIES: Right shoulder: Tenderness to the trapezius muscle, full range of motion of the shoulder joint, strength is 5/5, negative Renee Denys test negative Neer test, negative drop can test BACK: No tenderness over the midline cervical or thoracic spines, full range of motion, no bony abnormalities, no step-offs SKIN: Warm, dry, no rash. NEURO: No focal deficits. Alert and oriented x3. PSYCH: Normal mood and affect. Course Vital Signs Vital signs: Vital Signs Temperature 36.4 C 08/09/21 17:15 Pulse Rate 95 08/09/21 17:15 Respiratory Rate 18 08/09/21 17:15 Blood Pressure 133/82 08/09/21 17:15 Pulse Oximetry 98 08/09/21 17:15 Oxygen Delivery Room Air 08/09/21 17:15 Temperature 36.4 C 08/09/21 17:15 Pulse Rate 95 08/09/21 17:15 Respiratory Rate 18 08/09/21 17:15 Blood Pressure 133/82 08/09/21 17:15 Pulse Oximetry 98 08/09/21 17:15 Oxygen Delivery Room Air 08/09/21 17:15 MDM - Extremity (Nontraumatic) MDM Narrative Medical decision making narrative: 25-year-old male presented to the emergency room complaints of right shoulder pain and left inguinal pain. Shoulder exam was benign and, as full active and passive range of motion. Patient's pain was located mostly in his trapezius muscle. This is likely due to muscle spasm, or overuse. Will manage his discomfort with a muscle relaxer. Left inguinal exam showed swollen inguinal lym
[2021-08-09 18:23] LABS: Appearance Urine Clear (Clear); Bilirubin Urine Negative (Negative); Blood Urine Trace-lysed (Negative); Color Urine Yellow (Yellow); Glucose Urine UA Trace mg/dL (Negative); Ketones Urine Negative (Negative); Leukocyte Esterase Ur Negative LEU/UL (Negative); Nitrate Urine Negative (Negative); Protein Urine 1+ mg/dL (Negative); Specific Grav Ur 1.015 (1.001-1.035); Urobilinogen Urine 0.2 mg/dL (<2.0)
[2021-08-09 18:28] LABS: Mucus Urine Rare /lpf; RBC Urine 0-2 /hpf (0-2); Squamous Epithelial Cell Urine Rare /hpf (Few); WBC Urine 0-3 /hpf
[2021-08-09 18:36] LABS: Add Urine Microscopic? YES
== END 2021-08-09 18:53 | disposition home or self-care (01) ==
LOC: ANHED 18:32
PROVIDERS: Emergency Provider Nurse Practitioner Family
DX: M25.511 Pain in right shoulder (principal); R59.1 Generalized enlarged lymph nodes
CPT/HCPCS: 81001; 96372; 99283; J1100

== ENCOUNTER 2021-11-04 11:27 | Emergency (ER) | payer BC, SELFPAY ==
[2021-11-04 11:32] VITALS: BP 116/71; PULSE 88; RESP 18; TEMP 36.6; O2SAT 96
[2021-11-04 12:26] LABS: Monoscreen Negative (Negative); Negative Monotest Control Negative (Negative); Positive Monotest Control Positive (Positive)
--- NOTE | 2021-11-04 13:04 | ED.URI ---
HPI - URI/Sore Throat General Chief Complaint: Upper Respiratory Infection Stated Complaint: SORE THROAT, PAINFUL SWALLOWING Time Seen by Provider: 11/04/21 11:33 History of Present Illness HPI Narrative: 26-year-old male presents the emergency room for evaluation of a sore throat. Denies fever. States sore throat began 2 days ago. Denies any sinus congestion postnasal drip or cough. States pain is worse when attempting to swallow. Denies any known exposure to sick contacts. Related Data Allergies Allergy/AdvReac Type Severity Reaction Status Date / Time No Known Allergies Allergy Verified 11/09/20 15:05 Review of Systems Review of Systems: CONSTITUTIONAL: Denies fever, chills, or sweats. EYES: Denies visual changes, redness, or discharge. ENT: Reports sore throat CARDIOVASCULAR: Denies chest pain, palpitations, or edema. RESPIRATORY: Denies cough or dyspnea. GASTROINTESTINAL: Denies abdominal pain, nausea, vomiting, or diarrhea. GENITOURINARY: Denies dysuria or hematuria. SKIN: Denies rash or itching. MUSCULOSKELETAL: Denies back pain, joint pain, or myalgia. NEUROLOGIC: Denies headache, numbness, dizziness, or weakness. PSYCHIATRIC: Denies anxiety or depression. [facility] Past Medical History Medical History Seasonal allergies Surgical History Surgical History No pertinent past surgical history Social History Social History Smoking status: Unknown if ever smoked Gender identity (if verbalized by the patient): Male Exam Narrative: GENERAL: Well-appearing, well-nourished, no physical limitations, and in no acute distress. HEAD: Normocephalic, atraumatic. EYES: Conjunctivae normal, PERRLA and EOMI. ENT: External nose normal, Nares clear, no rhinorrhea or epistaxis. Mucous membranes moist. Oropharynx with erythematous tonsillar hypertrophy and exudate. NECK: Supple. No adenopathy or masses. CHEST: Clear to auscultation. No respiratory distress. No wheezes rales or rhonchi. No tenderness. HEART: Regular rate and rhythm. No murmur heard. Normal peripheral pulses. EXTREMITIES: Normal range of motion. No edema. No clubbing or cyanosis SKIN: Warm, dry, no rash. No noted wounds NEURO: No focal deficits. Alert and oriented x3. MAEW. CN's II-XI intact bilaterally, normal gait PSYCH: Cooperative. Normal mood and affect. Course Vital Signs Vital signs: Vital Signs Temperature 36.6 C 11/04/21 11:32 Pulse Rate 88 11/04/21 11:32 Respiratory Rate 18 11/04/21 11:32 Blood Pressure 116/71 11/04/21 11:32 Pulse Oximetry 96 11/04/21 11:32 Oxygen Delivery Room Air 11/04/21 11:32 Temperature 36.6 C 11/04/21 11:32 Pulse Rate 88 11/04/21 11:32 Respiratory Rate 18 11/04/21 11:32 Blood Pressure 116/71 11/04/21 11:32 Pulse Oximetry 96 11/04/21 11:32 Oxygen Delivery Room Air 11/04/21 11:32 MDM - URI/Sore Throat Lab Data Labs: Lab Results 11/04/21 11/04/21 Range/Units 12:01 12:01 Monoscreen Negative (Negative) Grp A Beta Strep Ag Cancelled Strep Screen Presumptive Negative *(Reference Range: Negative)* Discharge Plan Discharge Clinical Impression: Pharyngitis Patient Disposition: Home, Self-Care Condition: Stable Instructions: Antibiotic Form, Pharyngitis (ED) Prescriptions: New amoxicillin-pot clavulanate 875-125 mg tablet 1 tablet PO Q12H 7 Days Qty: 14 0RF No Action amoxicillin 875 mg tablet 875 mg PO Q12H Qty: 14 0RF ketotifen fumarate [Zaditor] 0.025 % (0.035 %) drops 1 drp EACH EYE BID Qty: 5 0RF Rx Instructions: administer at least 8 hours apart ofloxacin 0.3 % drops 2 drp EACH EYE QID Qty: 10 0RF naproxen 500 mg tablet 500 mg PO BID Qty: 20 0RF albuterol sulfa
== END 2021-11-04 13:13 | disposition home or self-care (01) ==
PROVIDERS: Emergency Provider Nurse Practitioner Family
DX: J02.9 Acute pharyngitis, unspecified (principal)
CPT/HCPCS: 86308; 87070; 87880; 96372; 99283; J1100

== ENCOUNTER 2022-01-31 11:17 | Emergency (ER) | payer BC, SELFPAY ==
[2022-01-31 11:38] VITALS: BP 142/95; PULSE 117; RESP 16; TEMP 38.1; O2SAT 99
[2022-01-31 12:25] LABS: Influenza A QL RT-PCR Positive (Negative); Influenza B QL RT-PCR Negative (Negative); SARS-CoV-2 RNA PCR Negative
--- NOTE | 2022-01-31 15:00 | ED.HA ---
HPI - Headache General Chief Complaint: Headache Stated Complaint: headache/ catching a cold Time Seen by Provider: 01/31/22 14:40 History of Present Illness HPI Narrative: 26-year-old male presented to the emergency department for evaluation of cough that started on Monday and headache that started on Monday. Patient states the headache is worsened with the cough. Patient denies any significant past medical history. Related Data Allergies Allergy/AdvReac Type Severity Reaction Status Date / Time No Known Allergies Allergy Verified 11/09/20 15:05 Review of Systems Review of Systems: CONSTITUTIONAL: Denies fever, chills, or sweats. EYES: Denies visual changes, redness, or discharge. ENT: Denies rhinorrhea, congestion, sore throat, or otalgia. CARDIOVASCULAR: Denies chest pain, palpitations, or edema. RESPIRATORY: See HPI GASTROINTESTINAL: Denies abdominal pain, nausea, vomiting, or diarrhea. GENITOURINARY: Denies dysuria or hematuria. SKIN: Denies rash or itching. MUSCULOSKELETAL: Denies back pain, joint pain, or myalgia. NEUROLOGIC: Headache but denies any associated numbness or weakness. PSYCHIATRIC: Denies anxiety or depression. [facility] Past Medical History Medical History (Updated 01/31/22 @ 15:03 by Alex Gonzales MD) Seasonal allergies Surgical History Surgical History No pertinent past surgical history Social History Social History Smoking status: Unknown if ever smoked Gender identity (if verbalized by the patient): Male Exam Narrative: APPEARANCE: Well appearing, no pain, no distress, well-nourished. HEAD: normocephalic, atraumatic. EYES: PERRLA/EOMI, conjunctivae clear. NOSE: Normal no drainage EARS:TMS clear with good light reflex. THROAT: Pharynx clear, no exudate. NECK: Supple. No adenopathy, no masses. RESPIRATORY: Airway patent, respirations nonlabored. Clear to auscultation bilaterally, no rales, rhonchi, wheezing. CARDIOVASCULAR: Regular rate and rhythm without murmurs rubs or gallops. ABDOMINAL: Soft, nontender, nondistended, normal bowel sounds MUSCULOSKELETAL: Moves all extremities. Strength/ROM intact, No edema, No calf tenderness. NEURO: Alert. Cranial nerves II through XII intact. Grossly intact SKIN: Warm, dry. Normal Color Course Course Emergency Course: Patient did test positive for influenza A. Patient has a normal neuro exam. No concerns for meningitis. Patient was updated the results of his exam and plan for treatment for home. All question concerns were addressed. Vital Signs Vital signs: Vital Signs Temperature 100.6 F H 01/31/22 11:38 Pulse Rate 117 H 01/31/22 11:38 Respiratory Rate 16 01/31/22 11:38 Blood Pressure 142/95 H 01/31/22 11:38 Pulse Oximetry 99 01/31/22 11:38 Temperature 100.6 F H 01/31/22 11:38 Pulse Rate 117 H 01/31/22 11:38 Respiratory Rate 16 01/31/22 11:38 Blood Pressure 142/95 H 01/31/22 11:38 Pulse Oximetry 99 01/31/22 11:38 MDM - Headache Lab Data Attestation: I reviewed the patient's lab results. Labs: Lab Results 01/31/22 Range/Units 11:39 Influenza A (RT-PCR) Positive (Negative) Influenza B (RT-PCR) Negative (Negative) SARS-CoV-2 RNA (RT-PCR) Negative Discharge Plan Discharge Clinical Impression: Influenza A Patient Disposition: Home, Self-Care Condition: Stable Instructions: Antibiotic Form, Influenza (ED) Additional Instructions: You tested positive for influenza A. Tylenol and ibuprofen for fever and for body aches. Drink plenty fluids. Albuterol inhaler for cough and shortness of breath. Tessalon Perles for cough. Have close follow-up with your primary care physician. Prescriptions: New albuterol sulfate 90 mcg/actuation HFA aerosol inhaler 1 inh inhalation QID PRN (Reason: shortness of breath or wheezing) Qty: 6.7 0RF [place]
[2022-01-31] MEDS: KETOROLAC 30 MG/ML VIAL (*BKC) IM (15:11)
== END 2022-01-31 15:57 | disposition home or self-care (01) ==
LOC: ANHED 15:14
PROVIDERS: Emergency Medicine; Emergency Provider Emergency Medicine
DX: J10.1 Influenza due to other identified influenza virus with other respiratory manifestations (principal); Z20.822 Contact with and (suspected) exposure to COVID-19
CPT/HCPCS: 87636; 96372; 99283; J1885

== ENCOUNTER 2022-02-24 11:31 | Emergency (ER) | payer BC, SELFPAY ==
[2022-02-24 11:35] VITALS: BP 123/91; PULSE 90; RESP 18; TEMP 36.4; O2SAT 98
[2022-02-24 12:53] LABS: Influenza A QL RT-PCR Negative (Negative); Influenza B QL RT-PCR Negative (Negative); RSV RNA, RT-PCR Negative (Negative); SARS-CoV-2 RNA PCR Negative
--- NOTE | 2022-02-24 12:57 | ED.URI ---
HPI - URI/Sore Throat General Chief Complaint: Upper Respiratory Infection Stated Complaint: sore throat Time Seen by Provider: 02/24/22 11:35 History of Present Illness HPI Narrative: 26-year-old male no medical problems presents to the emergency room for evaluation of sore throat, sinus congestion, postnasal drip and productive cough. Patient denies any chest pain or shortness of breath. Denies fevers. Related Data Allergies Allergy/AdvReac Type Severity Reaction Status Date / Time No Known Allergies Allergy Verified 02/24/22 11:31 Review of Systems Review of Systems: CONSTITUTIONAL: Denies fever, chills, or sweats. EYES: Denies visual changes, redness, or discharge. ENT: Reports congestion, and sore throat CARDIOVASCULAR: Denies chest pain, palpitations, or edema. RESPIRATORY: Denies cough or dyspnea. GASTROINTESTINAL: Denies abdominal pain, nausea, vomiting, or diarrhea. GENITOURINARY: Denies dysuria or hematuria. SKIN: Denies rash or itching. MUSCULOSKELETAL: Denies back pain, joint pain, or myalgia. NEUROLOGIC: Denies headache, numbness, dizziness, or weakness. PSYCHIATRIC: Denies anxiety or depression. [facility] Past Medical History Medical History (Updated 02/24/22 @ 13:18 by Jaison Blackwood APRN) Seasonal allergies Surgical History Surgical History No pertinent past surgical history Social History Social History Smoking status: Unknown if ever smoked Gender identity (if verbalized by the patient): Male Exam Narrative: GENERAL: Well-appearing, well-nourished, no physical limitations, and in no acute distress. HEAD: Normocephalic, atraumatic. EYES: Conjunctivae normal, PERRLA and EOMI. ENT: External nose normal, Nares clear, no rhinorrhea or epistaxis. Mucous membranes moist. Oropharynx without tonsillar hypertrophy exudate or other lesions. External ears normal, bilateral TMs normal bilaterally. Tonsillar columns +3 bilaterally NECK: Supple. No adenopathy or masses. CHEST: Clear to auscultation. No respiratory distress. No wheezes rales or rhonchi. No tenderness. HEART: Regular rate and rhythm. No murmur heard. Normal peripheral pulses. EXTREMITIES: Normal range of motion. No edema. No clubbing or cyanosis SKIN: Warm, dry, no rash. No noted wounds NEURO: No focal deficits. Alert and oriented x3. MAEW. CN's II-XI intact bilaterally, normal gait PSYCH: Cooperative. Normal mood and affect. Course Vital Signs Vital signs: Vital Signs Temperature 36.4 C 02/24/22 11:35 Pulse Rate 90 02/24/22 11:35 Respiratory Rate 18 02/24/22 11:35 Blood Pressure 123/91 H 02/24/22 11:35 Pulse Oximetry 98 02/24/22 11:35 Temperature 36.4 C 02/24/22 11:35 Pulse Rate 90 02/24/22 11:35 Respiratory Rate 18 02/24/22 11:35 Blood Pressure 123/91 H 02/24/22 11:35 Pulse Oximetry 98 02/24/22 11:35 Oxygen Delivery Room Air 02/24/22 11:57 MDM - URI/Sore Throat Lab Data Labs: Lab Results 02/24/22 Range/Units 11:54 Influenza A (RT-PCR) Negative (Negative) Influenza B (RT-PCR) Negative (Negative) RSV (RT-PCR) Negative (Negative) SARS-CoV-2 RNA (RT-PCR) Negative Discharge Plan Discharge Clinical Impression: Upper respiratory infection Patient Disposition: Home, Self-Care Condition: Stable Instructions: Antibiotic Form, Cold Symptoms (ED) Prescriptions: New prednisone 20 mg tablet 60 mg PO DAILY 5 Days Qty: 15 0RF pseudoephedrine HCl [Sudafed] 30 mg tablet 30 mg PO Q4-6H PRN (Reason: nasal congestion) Qty: 30 0RF Rx Instructions: DNExceed 4 doses/24h No Action amoxicillin 875 mg tablet 875 mg PO Q12H Qty: 14 0RF ketotifen fumarate [Zaditor] 0.025 % (0.035 %) drops 1 drp EACH EYE BID Qty: 5 0RF Rx Instructions: administer at least 8 hours apart ofloxacin 0.3 % drops 2 drp EAC
--- NOTE | 2022-02-24 13:02 | PC.NURSE ---
EDP at bedside to assess pt.
== END 2022-02-24 13:43 | disposition home or self-care (01) ==
PROVIDERS: Emergency Provider Nurse Practitioner Family
DX: J06.9 Acute upper respiratory infection, unspecified (principal); Z20.822 Contact with and (suspected) exposure to COVID-19
CPT/HCPCS: 87637; 96372; 99283; J1100

== ENCOUNTER 2022-05-31 00:22 | Emergency (ER) | payer BC, SELFPAY ==
[2022-05-31 00:26] VITALS: BP 127/86; PULSE 109; RESP 18; TEMP 36.9; O2SAT 99
[2022-05-31 01:14] LABS: Strep Group A RT-PCR DETECTED (Negative)
--- NOTE | 2022-05-31 04:23 | ED.GENADULT ---
HPI - General Adult General Chief complaint: Unspecified Stated complaint: throat tightness/difficulty swallowing Time Seen by Provider: 05/31/22 04:21 History of Present Illness HPI narrative: This is a 26-year-old male presenting to ED with a chief complaint of sore throat. The patient said that yesterday he started having throat pain and some swelling. So sick with cough. He went to work and then came to the emergency department for evaluation. Patient is speaking in full sentences. His voice is hoarse but does not sound muffled. He is able to swallow his own secretions. He has not taken any medications for pain or fever. Related Data Allergies Allergy/AdvReac Type Severity Reaction Status Date / Time No Known Allergies Allergy Verified 02/24/22 11:31 [facility] Past Medical History Medical History (Updated 05/31/22 @ 04:26 by Baltazar Reina MD) Seasonal allergies Surgical History Surgical History No pertinent past surgical history Social History Social History Smoking status: Unknown if ever smoked Gender identity (if verbalized by the patient): Male Exam Narrative: APPEARANCE: No apparent distress. Head: Patient has inflamed tonsils with exudates or uvular deviation, no evidence of peritonsillar abscess EYES: EOMI, NOSE: Atraumatic NECK: Trachea midline RESPIRATORY: No increased rate of breathing CARDIOVASCULAR: RRR, ABDOMINAL: Non-distended MUSCULOSKELETAl: No obvious deformities NEURO: Alert. Moving 4/4 extremities SKIN:: Warm, dry. Normal color PSYCHIATRIC: Normal affect Course Vital Signs Vital signs: Vital Signs Temperature 98.4 F 05/31/22 00:26 Pulse Rate 109 H 05/31/22 00:26 Respiratory Rate 18 05/31/22 00:26 Blood Pressure 127/86 05/31/22 00:26 Pulse Oximetry 99 05/31/22 00:26 Oxygen Delivery Room Air 05/31/22 00:26 Temperature 98.4 F 05/31/22 00:26 Pulse Rate 109 H 05/31/22 00:26 Respiratory Rate 18 05/31/22 00:26 Blood Pressure 127/86 05/31/22 00:26 Pulse Oximetry 99 05/31/22 00:26 Oxygen Delivery Room Air 05/31/22 00:26 Medical Decision Making MDM Narrative Medical decision making narrative: -Presentation: 18-year-old male presenting with sore throat swollen tonsils -DDX includes but is not limited to: tonsillitis, mononucleosis, strep throat -Co-morbidities complicating care: none -Social determinants of health: patient works at the [employer], lives alone -External Chart Review: none -Hx from independent Sources: none -Discussion of Management/Consultants: none -Independent interpretation of studies: none Dx tests considered but not ordered: patient is positive for strep. -Procedures: -Interventions: 10 mg IM dexamethasone, 800 mg Motrin, 1000 mg Tylenol, 500 mg amoxicillin -Shared decision making / Disposition: Patient will be treated with antibiotics steroids and NSAIDs. He has been given return precautions for inability to swallow his own secretions, shortness of breath or increased pain. Patient should follow up his primary care physician otherwise -RX amoxicillin 500 mg b.i.d. times 10 days, Motrin, Tylenol Vital Signs Vital Signs: Vital Signs Temperature 98.4 F 05/31/22 00:26 Pulse Rate 109 H 05/31/22 00:26 Respiratory Rate 18 05/31/22 00:26 Blood Pressure 127/86 05/31/22 00:26 Pulse Oximetry 99 05/31/22 00:26 Oxygen Delivery Room Air 05/31/22 00:26 Temperature 98.4 F 05/31/22 00:26 Pulse Rate 109 H 05/31/22 00:26 Respiratory Rate 18 05/31/22 00:26 Blood Pressure 127/86 05/31/22 00:26 Pulse Oximetry 99 05/31/22 00:26 Oxygen Delivery Room Air 05/31/22 00:26 Lab Data Labs: Lab Results 05/31/22 Range/Units 00:37 Group A Strep (PCR) Detected A (Negative) Discharge Plan Discharge Clinical Impression: Strep throat
[2022-05-31] MEDS: ACETAMINOPHEN 500 MG TABLET 1000 MG PO (04:33)
[2022-05-31] MEDS: IBUPROFEN 400 MG TABLET 800 MG PO (04:34)
[2022-05-31] MEDS: AMOXICILLIN 500 MG CAPSULE PO (04:34)
== END 2022-05-31 04:44 | disposition home or self-care (01) ==
LOC: ANHED 04:39
PROVIDERS: Emergency Provider Emergency Medicine; PCP Family Medicine
DX: J02.0 Streptococcal pharyngitis (principal)
CPT/HCPCS: 87651; 96372; 99283; A9270; J1100

== ENCOUNTER 2022-09-11 20:42 | Emergency (ER) | payer BC, SELFPAY ==
[2022-09-11 20:56] VITALS: BP 124/89; PULSE 86; RESP 14; TEMP 36.5; O2SAT 99
[2022-09-11 22:18] VITALS: BP 124/74; RESP 18; O2SAT 100
--- NOTE | 2022-09-11 22:18 | ED.EYEPROB ---
HPI - Eye Problem General Chief complaint: Eye Problems Stated complaint: eye pain Time Seen by Provider: 09/11/22 21:46 Source: patient Mode of arrival: ambulatory Limitations: no limitations History of Present Illness HPI Narrative: This is a 27 year old male that presents to the ER for right eye redness and pain ongoing over the last 2 days. Associated with tearing and blurry vision. Reports sensitivity to light. No recent known injuries. He does not normally wear glasses or contacts. Denies fever or purulent drainage. Related Data Allergies Allergy/AdvReac Type Severity Reaction Status Date / Time No Known Allergies Allergy Verified 02/24/22 11:31 Review of Systems Review of Systems: CONSTITUTIONAL: Denies fever EYES: Reports visual changes, redness, and discharge. All systems reviewed & are unremarkable except as noted in HPI and below PMFSH Past Medical History Medical History (Updated 09/11/22 @ 23:58 by Isadora Branham PA-C) Seasonal allergies Surgical History Surgical History No pertinent past surgical history Social History Social History (Updated 09/11/22 @ 22:24 by Isadora Branham PA-C) Smoking status: Never smoker Gender identity (if verbalized by the patient): Male Exam Narrative: GENERAL: Well-appearing, well-nourished, and in no acute distress. HEAD: Normocephalic, atraumatic. EYES: PERRLA and EOMI. Right conjunctival injection. I pressure on the right is 12, left is 11. Eyelid everted, no foreign bodies noted. No uptake on fluorescein stain exam EXTREMITIES: Normal range of motion. No edema. SKIN: Warm, dry, no rash. NEURO: No focal deficits. Alert and oriented x3. PSYCH: Normal mood and affect Course Course Emergency Course: Patient agrees with plan of care. We will follow-up with [facility] first thing in the morning Vital Signs Vital signs: Vital Signs Temperature 97.7 F 09/11/22 20:56 Pulse Rate 86 09/11/22 20:56 Respiratory Rate 14 09/11/22 20:56 Blood Pressure 124/89 09/11/22 20:56 Pulse Oximetry 99 09/11/22 20:56 Oxygen Delivery Room Air 09/11/22 20:56 Temperature 97.7 F 09/11/22 20:56 Pulse Rate 86 09/11/22 20:56 Respiratory Rate 18 09/11/22 22:18 Blood Pressure 124/74 09/11/22 22:18 Pulse Oximetry 100 09/11/22 22:18 Oxygen Delivery Room Air 09/11/22 22:18 MDM - Eye Problem MDM Narrative Medical decision making narrative: Patient presents emergency department for right eye pain, redness and light sensitivity. Ongoing over the last several days. He is afebrile and nontoxic-appearing. There is noted to be conjunctival injection of the eye. Patient reports blurry vision. His visual acuity is 20/40 and each eye. He has normal eye pressures. There is no uptake on fluorescein stain exam. No foreign bodies noted. Spoke with [facility] ophthalmology about patient and work-up. He will follow-up with them first thing in the morning. He was given warnings to return to the ER He also requested a refill of his albuterol prescription which was sent Differential Diagnosis Differential diagnosis: Likely corneal abrasion, conjunctivitis and acute iritis Critical Care Time Critical Care Time Critical Care Time: No Discharge Plan Discharge Clinical Impression: Blurred vision, right eye, Acute right eye pain Patient Disposition: Home, Self-Care Condition: Stable Instructions: Eye Pain (ED) Additional Instructions: [facility] at [facility] with [facility] ophthalmology at 830 tomorrow morning (09/12). Address: [address] [place] [address] Prescriptions: New albuterol sulfate [ProAir HFA] 90 mcg/actuation HFA aerosol inhaler 2 puff inhalation QID PRN (Reason: shortness of breath or wheezing) Qty: 8.5 0RF No Action amoxicillin 875 mg tablet 875 mg PO Q12H Qty: 14 0RF
--- NOTE | 2022-09-11 23:15 | PC.NURSE ---
This RN assumed care of patient.
== END 2022-09-12 00:48 | disposition home or self-care (01) ==
PROVIDERS: Emergency Provider Physician Assistant; PCP Family Medicine
DX: H53.8 Other visual disturbances (principal); H57.11 Ocular pain, right eye
CPT/HCPCS: 99283; A9270

== ENCOUNTER 2022-10-14 23:23 | Emergency (ER) | payer BC, SELFPAY ==
[2022-10-14 23:32] VITALS: BP 126/81; PULSE 83; RESP 20; TEMP 36.6; O2SAT 97
--- NOTE | 2022-10-15 00:23 | ED.URI ---
HPI - URI/Sore Throat General Chief Complaint: Upper Respiratory Infection <Mary Escamilla APRN - Last Filed: 10/15/22 02:27> Stated Complaint: sore throat <Mary Escamilla APRN - Last Filed: 10/15/22 02:27> Time Seen by Provider: 10/15/22 00:23 <Mary Escamilla APRN - Last Filed: 10/15/22 02:27> Source: patient <Mary Escamilla APRN - Last Filed: 10/15/22 02:27> Mode of arrival: ambulatory <Mary Escamilla APRN - Last Filed: 10/15/22 02:27> Limitations: no limitations <Mary Escamilla APRN - Last Filed: 10/15/22 02:27> History of Present Illness HPI Narrative: patient is a pleasant 27-year-old male without any past medical history presents emergency department today ambulatory with a steady gait for evaluation of a sore throat that hurts worse with swallowing. States has been going on for about 2 days. States that his right ear hurts as well. He denies any fever, chills, chest pain, shortness a breath, dizziness, cough, exposure to anybody with similar symptoms, fatigue, body aches, dental pain, or any other symptoms. He did take Tylenol earlier today. <Mary Escamilla APRN - Last Filed: 10/15/22 02:27> Related Data Allergies/Adverse Reactions: Allergies Allergy/AdvReac Type Severity Reaction Status Date / Time No Known Allergies Allergy Verified 02/24/22 11:31 <Mary Escamilla APRN - Last Filed: 10/15/22 02:27> Review of Systems Review of Systems: CONSTITUTIONAL: Denies fever, chills, or sweats. EYES: Denies visual changes, redness, or discharge. ENT: Denies rhinorrhea, congestion. reports sore throat, right ear pain. post nasal drainage. CARDIOVASCULAR: Denies chest pain, palpitations, or edema. RESPIRATORY: Denies cough or dyspnea. GASTROINTESTINAL: Denies abdominal pain, nausea, vomiting, or diarrhea. GENITOURINARY: Denies dysuria or hematuria. SKIN: Denies rash or itching. MUSCULOSKELETAL: Denies back pain, joint pain, or myalgia. NEUROLOGIC: Denies headache, numbness, or weakness. PSYCHIATRIC: Denies anxiety or depression. <Mary Escamilla APRN - Last Filed: 10/15/22 02:27> All systems reviewed & are unremarkable except as noted in HPI and below <Mary Escamilla APRN - Last Filed: 10/15/22 02:27> PMFSH Past Medical History Medical History: Medical History (Updated 10/15/22 @ 02:24 by Mary Escamilla APRN) Seasonal allergies <Mary Escamilla APRN - Last Filed: 10/15/22 02:27> Surgical History Surgical History: Surgical History No pertinent past surgical history <Mary Escamilla APRN - Last Filed: 10/15/22 02:27> Social History Social History: Social History Smoking status: Never smoker Gender identity (if verbalized by the patient): Male <Mary Escamilla APRN - Last Filed: 10/15/22 02:27> Exam Narrative: GENERAL: Well-appearing, well-nourished, and in no acute distress. HEAD: Normocephalic, atraumatic. EYES: PERRLA and EOMI. ENT: Nares clear, no rhinorrhea or epistaxis. Mucous membranes moist. 1+ bilateral tonsils with erythema no exudate. posterior oropharyngeal erythema. no peritonsillar abscess noted. Clear speech without any muffled tone, Swallowing with ease,Controlling secretions,No asymmetry or deviation. No trismus, drooling, soft palate swelling, oral floor elevation or neck induration/overlying cellulitis. No hot potato voice. NECK: Supple. no adenopathy noted. CHEST: Clear to auscultation. No respiratory distress. HEART: Regular rate and rhythm. No murmur heard. Normal peripheral pulses. EXTREMITIES: Normal range of motion. No edema. SKIN: Warm, dry, no rash. NEURO: No focal deficits. Alert and oriented x3. PSYCH: Normal mood and affect. <Mary Escamilla APRN - Last Filed: 10/15/22 02:27> Course COVER CREASER/PA Physician Supervision I agree with midlevel documentation; I performed the medical dec
[2022-10-15] MEDS: LIDOCAINE HCL 2% VISC SOLN 15 ML UDC PO (01:25)
[2022-10-15] MEDS: KETOROLAC 30 MG/ML VIAL (*BKC) IM (01:25)
[2022-10-15 02:05] LABS: Strep Group A RT-PCR NOT DETECTED (Negative)
[2022-10-15 02:09] LABS: Influenza A QL RT-PCR Negative (Negative); Influenza B QL RT-PCR Negative (Negative); RSV RNA, RT-PCR Negative (Negative); SARS-CoV-2 RNA PCR Negative (Negative)
== END 2022-10-15 03:15 | disposition home or self-care (01) ==
PROVIDERS: Emergency Medicine; Emergency Provider Nurse Practitioner; PCP Family Medicine
DX: J02.9 Acute pharyngitis, unspecified (principal); Z20.822 Contact with and (suspected) exposure to COVID-19
CPT/HCPCS: 87637; 87651; 96372; 99283; J1885

== ENCOUNTER 2022-11-08 01:43 | Emergency (ER) | payer BC, SELFPAY ==
--- NOTE | ~2022-11-08 | XR_ITS ---
Clinical Indication: Chest pain PA and lateral views of the chest: Comparison: 05/28/2021 Findings: The lungs are clear, without evidence of focal consolidation or pleural effusion. Cardiome diastinal silhouette is within normal limits. Stable metallic foreign bodies projecting over the left axillary region. Impression: Clear lungs. Stable metallic foreign bodies projecting over the left axillary region. Correlate with trauma histor y. Reviewed, dictated and finalized at [facility]. Impression: Clear lungs. Stable metallic foreign bodies projecting over the left axillary region. Correl ate with trauma history.
--- NOTE | 2022-11-08 01:44 | ECG_ITS ---
Measurements Intervals [place] Rate: 83 P: 51 [place]: 164 QRS: 29 QRSD: 93 T: 23 QT: 347 QTc: 409 Interpretive Statements SINUS RHYTHM NORMAL ECG 18:49:47 NO SIGNIFICANT CHANGES Electronically Signed On 11-08-2022 12:04:55 CDT by Jermaine Anderson M.D.
[2022-11-08 01:55] VITALS: BP 123/83; PULSE 83; RESP 14; TEMP 36.4; O2SAT 97
[2022-11-08 01:57] LABS: Basophils Absolute Auto 0.1 K/mm3 (0.0-0.1); Basophils Percent Auto 0.5 % (0.2-1.2); Eosinophils Absolute Auto 0.2 K/mm3 (0-0.3); Eosinophils Percent Auto 1.9 % (0-4.4); Hematocrit 40.3 % (42.0-52.0); Hemoglobin 13.1 g/dL (14.0-18.0); Immature Granulocyte Absolute 0.02 K/mm3 (0.00-0.031); Immature Granulocyte Percent A 0.2 % (0-0.5); Lymphocytes Percent Auto 28.4 % (18.3-44.2); Mean Corpuscular HGB Conc 32.5 g/dl (32-36); Mean Corpuscular Hemoglobin 26.6 pg (26-34); Mean Corpuscular Volume 81.7 fl (80-100); Mean Platelet Volume 9.4 fl (7.4-10.4); Monocytes Absolute Auto 1.2 K/mm3 (0.1-0.6); Monocytes Percent Auto 11.3 % (2.6-8.5); Neutrophils Absolute Auto 5.9 K/mm3 (1.3-6.7); Neutrophils Percent Auto 57.7 % (45.5-73.1); Platelet Count Result 378 k/mm3 (150-375); Red Blood Count 4.93 M/mm3 (4.6-6.20); Red Cell Distribution Width 14.3 % (11.5-14.5); White Blood Count 10.2 K/mm3 (4.5-10.0)
[2022-11-08 02:08] LABS: Alanine Aminotransferase 24 U/L (6-50); Albumin Level 4.3 g/dL (3.5-5.1); Alkaline Phosphatase 70 U/L (38-126); Anion Gap 26 mmol/L (8-16); Aspartate Amino Transferase 33 U/L (17-59); Bilirubin,Total 0.3 mg/dL (0.2-1.3); Blood Urea Nitrogen 12 mg/dL (9-20); Calcium 8.7 mg/dL (8.4-10.2); Carbon Dioxide 29 mmol/L (22-30); Chloride 84 mmol/L (98-107); Estimated CRCL calculation 177 ml/min; Estimated Glomerular Filt Rate > 60; Glucose 108 mg/dL (65-110); Lipase 61 U/L (23-300); Potassium 3.8 mmol/L (3.4-5.0); Prothrombin Time 13.9 Seconds (11.1-14.7); Sodium 139 mmol/L (137-145)
[2022-11-08 02:09] LABS: Partial Thromboplastin Time 28.6 SECONDS (22.3-36.8)
[2022-11-08 02:19] LABS: Troponin I < 0.012 ng/mL (0.000-0.034)
[2022-11-08 03:54] VITALS: PULSE 83
[2022-11-08 03:55] VITALS: O2SAT 97
[2022-11-08 05:12] LABS: Troponin I < 0.012 ng/mL (0.000-0.034)
[2022-11-08 05:46] VITALS: BP 136/86; PULSE 79; RESP 15; O2SAT 97
--- NOTE | 2022-11-08 06:03 | ED.GENADULT ---
HPI - General Adult General Chief complaint: Chest Pain Stated complaint: CP Time Seen by Provider: 11/08/22 04:11 History of Present Illness HPI narrative: Patient 18-year-old gentleman presents emergency department with chief complaint of chest pain. Patient reports that started having sharp chest pain reports is worse with inspiration and worse with movement. The patient reports that symptoms not improved by anything the patient reports that similar to when he had costochondritis before in the past. Related Data Allergies Allergy/AdvReac Type Severity Reaction Status Date / Time No Known Allergies Allergy Verified 02/24/22 11:31 Review of Systems Review of Systems: A 10 system review of systems was completed on the patient and is negative except for what is stated in the HPI. Nursing and ancillary documentation was reviewed. [facility] Past Medical History Medical History (Updated 11/08/22 @ 06:06 by Isaias Cunha MD) Seasonal allergies Surgical History Surgical History No pertinent past surgical history Social History Social History Smoking status: Never smoker Gender identity (if verbalized by the patient): Male Exam Narrative: GENERAL: Well-appearing, well-nourished, and in no acute distress. HEAD: Normocephalic, atraumatic. EYES: PERRLA and EOMI. ENT: Nares clear, no rhinorrhea or epistaxis. Mucous membranes moist. NECK: Supple. CHEST: Clear to auscultation. No respiratory distress. Chest wall is tender to palpation in the sternal borders HEART: Regular rate and rhythm. No murmur heard. Normal peripheral pulses. ABDOMEN: Soft, nontender, nondistended, normal active bowel sounds. EXTREMITIES: Normal range of motion. No edema. SKIN: Warm, dry, no rash. NEURO: No focal deficits. Alert and oriented x3. PSYCH: Normal mood and affect. Course Vital Signs Vital signs: Vital Signs Temperature 36.4 C 11/08/22 01:55 Pulse Rate 83 11/08/22 01:55 Respiratory Rate 14 11/08/22 01:55 Blood Pressure 123/83 11/08/22 01:55 Pulse Oximetry 97 11/08/22 01:55 Oxygen Delivery Room Air 11/08/22 01:55 Temperature 36.4 C 11/08/22 01:55 Pulse Rate 79 11/08/22 05:46 Respiratory Rate 15 11/08/22 05:46 Blood Pressure 136/86 11/08/22 05:46 Pulse Oximetry 97 11/08/22 05:46 Oxygen Delivery Room Air 11/08/22 03:55 Medical Decision Making MDM Narrative Medical decision making narrative: Differential diagnosis includes costochondritis, chest wall pain, Amatory studies were obtained which showed a normal CBC electrolytes are within normal limits troponin is negative for 2 sets lipase is normal Chest x-ray shows no pneumothorax no widened mediastinum EKG is sinus rhythm rate of [address] elevation or ST depression Vital Signs Vital Signs: Vital Signs Temperature 36.4 C 11/08/22 01:55 Pulse Rate 83 11/08/22 01:55 Respiratory Rate 14 11/08/22 01:55 Blood Pressure 123/83 11/08/22 01:55 Pulse Oximetry 97 11/08/22 01:55 Oxygen Delivery Room Air 11/08/22 01:55 Temperature 36.4 C 11/08/22 01:55 Pulse Rate 79 11/08/22 05:46 Respiratory Rate 15 11/08/22 05:46 Blood Pressure 136/86 11/08/22 05:46 Pulse Oximetry 97 11/08/22 05:46 Oxygen Delivery Room Air 11/08/22 03:55 Lab Data 11/08/22 01:51 11/08/22 01:51 Labs: Lab Results 11/08/22 11/08/22 Range/Units 01:51 04:45 WBC 10.2 H (4.5-10.0) K/mm3 RBC 4.93 (4.6-6.20) M/mm3 Hgb 13.1 L (14.0-18.0) g/dL Hct 40.3 L (42.0-52.0) % MCV 81.7 (80-100) fl MCH 26.6 (26-34) pg MCHC 32.5 (32-36) g/dl RDW 14.3 (11.5-14.5) % Plt Count 378 H (150-375) k/mm3 MPV 9.4 (7.4-10.4) fl Immature Gran % (Auto) 0.2 (0-0.5) % Neut % (Auto) 57.7 (45.5-73.1) % Lymph % (Auto
[2022-11-08 06:12] VITALS: RESP 16
== END 2022-11-08 06:13 | disposition home or self-care (01) ==
PROVIDERS: Emergency Provider Emergency Medicine; PCP Family Medicine
DX: M94.0 Chondrocostal junction syndrome [Tietze] (principal); R07.89 Other chest pain
CPT/HCPCS: 36415; 71046; 80053; 83690; 84484; 85025; 85610; 85730; 93005; 99284

== ENCOUNTER 2022-12-29 13:02 | Emergency (ER) | payer BC, SELFPAY ==
[2022-12-29 13:27] VITALS: BP 167/82; PULSE 88; RESP 18; TEMP 36.6; O2SAT 98
[2022-12-29 14:09] LABS: Strep Group A RT-PCR NOT DETECTED (Negative)
--- NOTE | 2022-12-29 14:54 | ED.GENADULT ---
HPI - General Adult General Chief complaint: Upper Respiratory Infection Stated complaint: ST Time Seen by Provider: 12/29/22 14:13 History of Present Illness HPI narrative: 27-year-old male presented the ED for evaluation of sore throat that has been going on for the last 2 days. Patient does report associated nasal congestion and postnasal drip. Related Data Allergies Allergy/AdvReac Type Severity Reaction Status Date / Time No Known Allergies Allergy Verified 12/29/22 14:12 Review of Systems Review of Systems: All systems reviewed & are unremarkable except as noted in HPI and below PMFSH Past Medical History Medical History (Updated 12/29/22 @ 14:55 by Alex Gonzales MD) Seasonal allergies Surgical History Surgical History No pertinent past surgical history Social History Social History Smoking status: Never smoker Gender identity (if verbalized by the patient): Male Exam Narrative: APPEARANCE: Well appearing, no pain, no distress, well-nourished. HEAD: normocephalic, atraumatic. EYES: PERRLA/EOMI, conjunctivae clear. NOSE: Normal no drainage EARS:TMS clear with good light reflex. THROAT: Pharynx clear, no exudate. NECK: Supple. No adenopathy, no masses. RESPIRATORY: Airway patent, respirations nonlabored. Clear to auscultation bilaterally, no rales, rhonchi, wheezing. CARDIOVASCULAR: Regular rate and rhythm without murmurs rubs or gallops. ABDOMINAL: Soft, nontender, nondistended, normal bowel sounds MUSCULOSKELETAL: Moves all extremities. Strength/ROM intact, No edema, No calf tenderness. NEURO: Alert. Cranial nerves II through XII intact. Grossly intact SKIN: Warm, dry. Normal Color Course Course Emergency Course: 27-year-old male present emerged department for evaluation of sore throat. Sore throat appears to be secondary to postnasal drip. Patient was advised to start taking a decongestant. Patient has also been complaining of blurry eyes for which she had follow-up with an outside physician patient was encouraged of close follow-up with ophthalmology. All questions concerns were addressed and patient was comfortable to plan for discharge and close follow-up Vital Signs Vital signs: Vital Signs Temperature 97.9 F 12/29/22 13:27 Pulse Rate 88 12/29/22 13:27 Respiratory Rate 18 12/29/22 13:27 Blood Pressure 167/82 H 12/29/22 13:27 Pulse Oximetry 98 12/29/22 13:27 Oxygen Delivery Room Air 12/29/22 13:27 Temperature 97.9 F 12/29/22 13:27 Pulse Rate 88 12/29/22 13:27 Respiratory Rate 18 12/29/22 13:27 Blood Pressure 167/82 H 12/29/22 13:27 Pulse Oximetry 98 12/29/22 13:27 Oxygen Delivery Room Air 12/29/22 13:27 Medical Decision Making Vital Signs Vital Signs: Vital Signs Temperature 97.9 F 12/29/22 13:27 Pulse Rate 88 12/29/22 13:27 Respiratory Rate 18 12/29/22 13:27 Blood Pressure 167/82 H 12/29/22 13:27 Pulse Oximetry 98 12/29/22 13:27 Oxygen Delivery Room Air 12/29/22 13:27 Temperature 97.9 F 12/29/22 13:27 Pulse Rate 88 12/29/22 13:27 Respiratory Rate 18 12/29/22 13:27 Blood Pressure 167/82 H 12/29/22 13:27 Pulse Oximetry 98 12/29/22 13:27 Oxygen Delivery Room Air 12/29/22 13:27 Lab Data Labs: Lab Results 12/29/22 Range/Units 13:32 Group A Strep (PCR) Not detected (Negative) Discharge Plan Discharge Clinical Impression: Acute sore throat Patient Disposition: Home, Self-Care Condition: Stable Instructions: Antibiotic Form, Cold Symptoms (ED) Additional Instructions: Mild decongestant to help with the postnasal drip. Tylenol and ibuprofen for pain control. Drink plenty of fluids. Have close follow-up with ophthalmology. If you have any worsening symptoms please call or return to the emergency department. Prescription
== END 2022-12-29 15:03 | disposition home or self-care (01) ==
PROVIDERS: Emergency Provider Emergency Medicine; PCP Family Medicine
DX: J02.9 Acute pharyngitis, unspecified (principal)
CPT/HCPCS: 87651; 99283

== ENCOUNTER 2023-01-14 16:23 | Emergency (ER) | payer BC, SELFPAY ==
[2023-01-14 16:50] VITALS: BP 147/91; PULSE 91; RESP 16; TEMP 36.7; O2SAT 100
--- NOTE | 2023-01-14 17:57 | ED.EYEPROB ---
HPI - Eye Problem General Chief complaint: Eye Problems Stated complaint: LEFT EYE ISSUE Time Seen by Provider: 01/14/23 17:12 Source: patient Mode of arrival: ambulatory Limitations: no limitations History of Present Illness HPI Narrative: This is a 27 year old male that presents to the ER for left eye redness. Ongoing since this morning. Reports blurry vision and tearing. Reports no known injury, although he has been rubbing his eye. Denies fever, headache, vomiting. Related Data Allergies Allergy/AdvReac Type Severity Reaction Status Date / Time No Known Allergies Allergy Verified 12/29/22 14:12 Review of Systems Review of Systems: CONSTITUTIONAL: Denies fever EYES: Reports visual changes, redness, and discharge. All systems reviewed & are unremarkable except as noted in HPI and below PMFSH Past Medical History Medical History (Updated 01/14/23 @ 18:03 by Isadora Branham PA-C) Seasonal allergies Surgical History Surgical History No pertinent past surgical history Social History Social History Smoking status: Never smoker Gender identity (if verbalized by the patient): Male Exam Narrative: GENERAL: Well-appearing, well-nourished, and in no acute distress. HEAD: Normocephalic, atraumatic. EYES: PERRLA and EOMI. Left conjunctival injection and tearing. Eye pressures tested bilaterally. Visual acuity 20/70 bilaterally. Eyelid everted, no foreign bodies noted. Fluorescein stain uptake with probable corneal abrasion of the left eye EXTREMITIES: Normal range of motion. No edema. SKIN: Warm, dry, no rash. NEURO: No focal deficits. Alert and oriented x3. PSYCH: Normal mood and affect Course Vital Signs Vital signs: Vital Signs Temperature 98.0 F 01/14/23 16:50 Pulse Rate 91 01/14/23 16:50 Respiratory Rate 16 01/14/23 16:50 Blood Pressure 147/91 H 01/14/23 16:50 Pulse Oximetry 100 01/14/23 16:50 Oxygen Delivery Room Air 01/14/23 16:50 Temperature 98.0 F 01/14/23 16:50 Pulse Rate 91 01/14/23 16:50 Respiratory Rate 16 01/14/23 16:50 Blood Pressure 147/91 H 01/14/23 16:50 Pulse Oximetry 100 01/14/23 16:50 Oxygen Delivery Room Air 01/14/23 16:50 MDM - Eye Problem MDM Narrative Medical decision making narrative: Patient presents to the emergency department for left eye redness and irritation. Ongoing since this morning. He is afebrile and nontoxic-appearing. No foreign body or concerning findings on exam. He is noted to have a corneal abrasion. His eye pressures are normal. Visual acuity is equal bilaterally. He does report he was seen for similar problem several months ago at [facility]. Reports that he will need to see a different eye doctor due to insurance reasons. I have instructed him he should have close follow-up with [facility]. He will be started on a topical antibiotic for corneal abrasion. He was given warnings to return to the ER Differential Diagnosis Differential diagnosis: Likely corneal abrasion, conjunctivitis, periorbital cellulitis and corneal ulcer Critical Care Time Critical Care Time Critical Care Time: No Discharge Plan Discharge Clinical Impression: Corneal abrasion, left Qualifiers: Encounter type: initial encounter Qualified Code(s): S05.02XA - Injury of conjunctiva and corneal abrasion without foreign body, left eye, initial encounter Patient Disposition: Home, Self-Care Condition: Stable Instructions: Antibiotic Form, Corneal Abrasion (ED) Additional Instructions: Return to the emergency department if you experience fevers, redness and swelling of your eye, pain with eye movements, worsening visual problems, or any other symptoms that are concerning to you Instill 2 drops into the left eye 4 times daily for the next week Follow-up with ophthalmology. [facility]
[2023-01-14] MEDS: DACRIOSE EYE IRRIGATION 118 ML BOTTLE (18:51)
[2023-01-14] MEDS: CIPROFLOXACIN HCL 0.3% OP SOLN 2.5 ML BTL 2 DROP LEFT EYE (18:51)
[2023-01-14 18:52] VITALS: BP 123/90; PULSE 101; RESP 20; TEMP 36.9; O2SAT 98
== END 2023-01-14 18:53 | disposition home or self-care (01) ==
PROVIDERS: Emergency Provider Physician Assistant; PCP Family Medicine
DX: S05.02XA Injury of conjunctiva and corneal abrasion without foreign body, left eye, initial encounter (principal); X58.XXXA Exposure to other specified factors, initial encounter
CPT/HCPCS: 99283; A9270

== ENCOUNTER 2023-01-28 01:35 | Emergency (ER) | payer BC, SELFPAY ==
[2023-01-28 01:43] VITALS: BP 126/68; PULSE 144; RESP 15; TEMP 39.3; O2SAT 100
[2023-01-28 02:37] LABS: Strep Group A RT-PCR NOT DETECTED (Negative)
[2023-01-28 02:49] LABS: Influenza A QL RT-PCR Negative (Negative); Influenza B QL RT-PCR Negative (Negative); RSV RNA, RT-PCR Negative (Negative); SARS-CoV-2 RNA PCR Negative (Negative)
[2023-01-28] MEDS: ACETAMINOPHEN 500 MG TABLET 1000 MG PO (04:57)
[2023-01-28 06:00] VITALS: BP 140/76; PULSE 118; RESP 16; TEMP 36.4; O2SAT 97
--- NOTE | 2023-01-28 06:01 | PC.NURSE ---
Pt revitalized. Sleeping quietly per cart. Resp even and nonlabored.
--- NOTE | 2023-01-28 06:55 | ED.FEVER ---
HPI - Fever General Chief Complaint: Fever Stated Complaint: fever, nausea Time Seen by Provider: 01/28/23 05:13 Source: patient Limitations: no limitations History of Present Illness HPI Narrative: Patient is a 27-year-old male presents to the emergency department complaining of sore throat, fever. Patient states that he developed sore throat yesterday and also felt some chills and upon arrival to the emergency department was told that he has a fever. Patient has not been taking any medications for this. Patient is unsure if he has had any sick contacts. Patient denies any recent injuries or recent illness male was in his normal state health preceding this. Patient denies abdominal pain, diarrhea, rash, new or changed sexual partners, ear pain, nasal congestion, runny nose, chest pain, shortness of breath, cough. Patient denies any recent antibiotic use. Patient denies difficulty swallowing Related Data Allergies Allergy/AdvReac Type Severity Reaction Status Date / Time No Known Allergies Allergy Verified 01/28/23 07:18 Review of Systems Review of Systems: A 10 system review of systems was completed on the patient and is negative except for what is stated in the HPI. Nursing and ancillary documentation was reviewed. [facility] Past Medical History Medical History (Updated 01/28/23 @ 07:41 by Darwin Guevara DO) Seasonal allergies Surgical History Surgical History No pertinent past surgical history Social History Social History Smoking status: Never smoker Gender identity (if verbalized by the patient): Male Comments At time of signature, I have reviewed and agree with nursing past medical, surgical, social and family history unless otherwise noted. Please see the nursing chart for further information. There is no relevant family history pertinent to the presenting complaint. Exam Narrative: CONST: No acute distress. Well nourished. Sleeping comfortably in bed upon my arrival. HENMT: Head is normocephalic and atraumatic. Moist mucous membranes. Uvula without deviation or edema. Soft palate without swelling. No sublingual brawny edema or tongue elevation. No periapical tooth swelling or pus expression, no tooth fracture, no gingival swelling, no active oral bleeding. Bilateral tonsillar swelling, exudates, and erythema. EYES: No conjunctival icterus, injection, or pallor. PERRL. NECK: No meningeal signs. Mild bilateral palpable anterior cervical lymphadenopathy. RESP: Able to speak in full sentences. Normal respiratory effort. CTAB. CARDIO: Regular rate. Regular rhythm. 2+ DP and radial pulses bilaterally. GI: Nondistended. No tenderness to palpation. Soft. : No CVA tenderness to palpation. SKIN: No rashes or lesions noted on exposed skin. NEURO: Oriented x3. Moves all extremities. EXTREM/MSK/BACK: No pedal edema. PSYCH: Normal affect. Course Vital Signs Vital signs: Vital Signs Temperature 102.8 F H 01/28/23 01:43 Pulse Rate 144 H 01/28/23 01:43 Respiratory Rate 15 01/28/23 01:43 Blood Pressure 126/68 01/28/23 01:43 Pulse Oximetry 100 01/28/23 01:43 Oxygen Delivery Room Air 01/28/23 01:43 Temperature 97.5 F L 01/28/23 06:00 Pulse Rate 118 H 01/28/23 06:00 Respiratory Rate 16 01/28/23 06:00 Blood Pressure 140/76 01/28/23 06:00 Pulse Oximetry 97 01/28/23 06:00 Oxygen Delivery Room Air 01/28/23 01:43 MDM - Fever MDM Narrative Medical decision making narrative: Patient presents with the above complaint. Initial vitals are remarkable for tachycardia and fever. Physical examination as noted above. Plan discussed: strep swab, COVID/flu swab, monotest, tylenol, benzocaine lozenge. CENTOR criteria score of 4. Patient ordered amoxicillin 1g PO. Patient was reassessed at the bedside. No changes in physical exam. Patie
[2023-01-28 07:15] VITALS: TEMP 36.3
[2023-01-28] MEDS: AMOXICILLIN 500 MG CAPSULE 1000 MG PO (07:15)
[2023-01-28 07:17] VITALS: BP 127/71; PULSE 123; RESP 20; O2SAT 98
[2023-01-28] MEDS: BENZOCAINE/MENTHOL (*BKC) 18 EA LOZENGE 1 LOZENGE PO (07:18)
--- NOTE | 2023-01-28 07:20 | PC.NURSE ---
Report to HOLLEY Parsons
[2023-01-28 07:55] LABS: Monoscreen Negative (Negative); Negative Monotest Control Negative (Negative); Positive Monotest Control Positive (Positive)
[2023-01-28 08:07] VITALS: BP 106/67; PULSE 84; RESP 16; O2SAT 97
== END 2023-01-28 08:13 | disposition home or self-care (01) ==
PROVIDERS: Emergency Provider Student in an Organized Health Care Education/Training Program; PCP Family Medicine
DX: J03.90 Acute tonsillitis, unspecified (principal); R50.9 Fever, unspecified; Z20.822 Contact with and (suspected) exposure to COVID-19
CPT/HCPCS: 36415; 86308; 87637; 87651; 99283; A9270

== ENCOUNTER 2023-01-30 15:26 | Emergency (ER) | payer BC, SELFPAY ==
[2023-01-30 15:27] VITALS: BP 151/94; PULSE 102; RESP 20; TEMP 36.7; O2SAT 99
--- NOTE | 2023-01-30 16:17 | ED.ALLEREA ---
HPI - Allergic Reaction General Chief complaint: Allergic Reaction <JOSI Arceo Last Filed: 01/30/23 16:28> Stated complaint: allergic reaction <JOSI Arceo Last Filed: 01/30/23 16:28> Time Seen by Provider: 01/30/23 18:00 <JOSI Arceo Last Filed: 01/30/23 16:28> Source: patient <JOSI Arceo Last Filed: 01/30/23 16:28> Mode of arrival: ambulatory <JOSI Arceo Filed: 01/30/23 16:28> Limitations: no limitations <JOSI Arceo Filed: 01/30/23 16:28> History of Present Illness HPI narrative: Patient is a 27 y/o male who presents to the ED with c/o rash to his hands, face, arms. Patient reports he was started on amoxicillin 2 days ago for tonsillitis. He states he began noticing a hive like rash to his hands after taking the medication. He believes he has had the medication before and did not have a reaction to it. States the rash is very itchy and painful on his hands. Has formed almost blister like lesions on palms. He has not taken anything for the sx's. Denies difficulty breathing or swallowing, swelling in throat, fevers. No family members with similar sx's. No recent travel. <JOSI Arceo Last Filed: 01/30/23 16:28> Related Data Allergies/adverse reactions: Allergies Allergy/AdvReac Type Severity Reaction Status Date / Time amoxicillin Allergy Hives Verified 01/30/23 18:07 <JOSI Arceo Last Filed: 01/30/23 16:28> Review of Systems Review of Systems: All systems as dictated in HPI <JOSI Faustin Last Filed: 01/30/23 20:26> ENT: Reports as per HPI and Denies dysphagia <JOSI Arceo Last Filed: 01/30/23 16:28> Cardiovascular: Cardiovascular: Denies chest pain <Selin Johnson PA-C - Last Filed: 01/30/23 16:28> Respiratory: Respiratory: Denies cough and Denies dyspnea <Selin Johnson PA-C - Last Filed: 01/30/23 16:28> Integumentary/Breasts: Skin/Breast: Reports pruritus, Reports erythema and Reports rash <Selin Johnson PA-C - Last Filed: 01/30/23 16:28> [facility] Past Medical History Medical History: Medical History (Updated 01/30/23 @ 18:50 by Jacky Dominguez PA-C) Seasonal allergies <Selin Johnson PA-C - Last Filed: 01/30/23 16:28> Surgical History Surgical History: Surgical History No pertinent past surgical history <Selin Johnson PA-C - Last Filed: 01/30/23 16:28> Social History Social History: Social History Smoking status: Never smoker Gender identity (if verbalized by the patient): Male <Selin Johnson PA-C - Last Filed: 01/30/23 16:28> Exam Const: General: healthy appearing and no acute distress <Selin Johnson PA-C - Last Filed: 01/30/23 16:28> Nutritional Appearance: obese <Selin Johnson PA-C - Last Filed: 01/30/23 16:28> HENMT: Mouth: Yes Normal oral and palatal mucosa present, Yes lip normal and Yes moist mucous membranes <Selin Johnson PA-C - Last Filed: 01/30/23 16:28> Resp: Effort & Inspection: normal respiratory effort <Selin Johnson PA-C - Last Filed: 01/30/23 16:28> Cardio: Rate: regular rate <Selin Johnson PA-C - Last Filed: 01/30/23 16:28> Rhythm: regular rhythm <Selin Johnson PA-C - Last Filed: 01/30/23 16:28> Skin: Other: Papular erythematous rash to jose hands (dorsal and palmar surfaces), extending slightly into wrists, face (periorbital/perioral regions), neck. No significant involvement of arms or abdomen. No drainage. No vesicles. No burrows noted. <Selin Johnson PA-C - Last Filed: 01/30/23 16:28> Course Vital Signs Vital signs: Vital Signs Temperature 98.1 F 01/30/23 15:27 Pulse Rate 102 H 11
[2023-01-30] MEDS: FAMOTIDINE 20 MG TABLET PO (16:22)
[2023-01-30] MEDS: methylPREDNISolone SOD SUCC 125 MG VIAL IM (16:22)
[2023-01-30] MEDS: diphenhydrAMINE HCl CAP 25 MG CAPSULE 50 MG PO (16:22)
[2023-01-30 18:03] VITALS: BP 187/89; PULSE 100; RESP 18; O2SAT 99
[2023-01-30] MEDS: KETOROLAC 30 MG/ML VIAL (*BKC) IM (18:35)
[2023-01-30 18:43] LABS: Basophils Percent Auto 0.4 % (0.2-1.2); Eosinophils Percent Auto 0.3 % (0-4.4); Hematocrit 41.8 % (42.0-52.0); Hemoglobin 13.7 g/dL (14.0-18.0); Immature Granulocyte Absolute 0.02 K/mm3 (0.00-0.031); Immature Granulocyte Percent A 0.2 % (0-0.5); Lymphocytes Percent Auto 9.7 % (18.3-44.2); Mean Corpuscular HGB Conc 32.8 g/dl (32-36); Mean Corpuscular Volume 79.5 fl (80-100); Mean Platelet Volume 9.4 fl (7.4-10.4); Monocytes Absolute Auto 0.8 K/mm3 (0.1-0.6); Monocytes Percent Auto 7.9 % (2.6-8.5); Neutrophils Absolute Auto 8.5 K/mm3 (1.3-6.7); Neutrophils Percent Auto 81.5 % (45.5-73.1); Platelet Count Result 350 k/mm3 (150-375); Red Blood Count 5.26 M/mm3 (4.6-6.20); Red Cell Distribution Width 14.3 % (11.5-14.5); White Blood Count 10.4 K/mm3 (4.5-10.0)
[2023-01-30 18:53] LABS: Alanine Aminotransferase 27 U/L (6-50); Albumin Level 4.5 g/dL (3.5-5.1); Alkaline Phosphatase 61 U/L (38-126); Anion Gap 10 mmol/L (8-16); Aspartate Amino Transferase 31 U/L (17-59); Bilirubin,Total 0.5 mg/dL (0.2-1.3); Blood Urea Nitrogen 12 mg/dL (9-20); Calcium 9.4 mg/dL (8.4-10.2); Carbon Dioxide 27 mmol/L (22-30); Chloride 101 mmol/L (98-107); Estimated CRCL calculation 200 ml/min; Estimated Glomerular Filt Rate > 60; Glucose 98 mg/dL (65-110); Potassium 4.1 mmol/L (3.4-5.0); Sodium 138 mmol/L (137-145)
== END 2023-01-30 19:15 | disposition home or self-care (01) ==
PROVIDERS: Emergency Provider Physician Assistant; PCP Family Medicine
DX: T78.40XA Allergy, unspecified, initial encounter (principal); X58.XXXA Exposure to other specified factors, initial encounter
CPT/HCPCS: 36415; 80053; 85025; 96372; 99284; A9270; J1885; J2930

== ENCOUNTER 2023-03-03 07:06 | Emergency (ER) | payer BC, SELFPAY ==
--- NOTE | ~2023-03-03 | CT_ITS ---
EXAMINATION: CT soft tissue neck w con DATE: 03/03/2023 08:16 INDICATION: Tonsillar swelling TECHNIQUE: Computed tomography (CT) of the neck was performed with 75 cc of Omnipaque 350 intravenous contrast. The dose-length product (DLP) was 582.02 mGy-cm. Automated exposure control and iterative reconstruction technique were employed. COMPARISON: None FINDINGS: There is enlargement of the tonsils. No peritonsillar abscess is identified. The thyroid gl and is unremarkable. The submandibular and parotid glands are symmetric. There is mild cervical lymph adenopathy, likely reactive. There are no masses identified. The vasculature is patent. The airway is unremarkable. There are no osseous abnormalities. The orbits are unremarkable. The superior mediasti num is unremarkable. Visualized sinuses and mastoid air cells are well aerated. IMPRESSION: 1. No peritonsillar abscess identified. Reviewed, dictated and finalized at location B. ARTIST
[2023-03-03 07:07] VITALS: BP 135/86; PULSE 87; RESP 18; TEMP 36.5; O2SAT 95
--- NOTE | 2023-03-03 07:41 | ED.URI ---
HPI - URI/Sore Throat General Chief Complaint: Upper Respiratory Infection Stated Complaint: Sore Throat Time Seen by Provider: 03/03/23 07:24 Source: patient Mode of arrival: ambulatory Limitations: no limitations History of Present Illness HPI Narrative: 27-year-old with a sore throat for 2 days. He denies any fever but has had a cough. Experiencing some Dysphagia and odynophagia. Jasper a burning sensation while eating seasoned food. Feels that he is having voice changes. No nasal congestion or sick contacts. Related Data Allergies Allergy/AdvReac Type Severity Reaction Status Date / Time amoxicillin Allergy Hives Verified 03/03/23 07:08 [facility] Past Medical History Medical History Seasonal allergies Surgical History Surgical History No pertinent past surgical history Social History Social History Smoking status: Never smoker Gender identity (if verbalized by the patient): Male Exam Narrative: GENERAL: Well-appearing, well-nourished, and in no acute distress. HEAD: Normocephalic, atraumatic. EYES: Non injected, non icteric ENT: Nares clear, no epistaxis. Bilateral tonsillar hypertrophy with exudate. uvula is midline at the superior aspect although the tip does deviate. Speaks with slightly muffled voice. NECK: Supple. no meningismus, mild lymphadenopathy CHEST: Speaking in complete sentences No respiratory distress. HEART: Regular rate and rhythm. . ABDOMEN: Soft, obese nondistended. EXTREMITIES: Normal range of motion. No edema. SKIN: Warm, dry, no rash. NEURO: No focal deficits. Alert and oriented x3. observed ambulating with steady gait. PSYCH: Normal mood and affect. Course Vital Signs Vital signs: Vital Signs Temperature 97.7 F 03/03/23 07:07 Pulse Rate 87 03/03/23 07:07 Respiratory Rate 18 03/03/23 07:07 Blood Pressure 135/86 03/03/23 07:07 Pulse Oximetry 95 03/03/23 07:07 Oxygen Delivery Room Air 03/03/23 07:07 Temperature 97.7 F 03/03/23 07:07 Pulse Rate 87 03/03/23 07:07 Respiratory Rate 18 03/03/23 07:07 Blood Pressure 135/86 03/03/23 07:07 Pulse Oximetry 95 03/03/23 07:07 Oxygen Delivery Room Air 03/03/23 07:07 MDM - URI/Sore Throat MDM Narrative Medical decision making narrative: patient presents with a sore throat of 2 days duration. Vital signs within normal limits. I suspect this might be strep throat or reaction to alternative viral process. However, given that there is slight deviation of the uvula and he speaks with a somewhat muffled voice as well as report of odynophagia and dysphagia will proceed with CT imaging of the neck as well. Centor Score - estimates probability that pharyngitis is streptococcal and suggests mgmt Age (3-14 years = +1, 15-44 years = 0, >45 years = -1): 0 Exudate or tonsillar swelling (No 0, Yes +1): 1 Anterior cervical lymphadenopathy (No 0, Yes +1): 1 Temp > 38C (No 0, Yes +1): 0 Cough (present 0 , absent +1): 0 2 points, 11-17% probability of strep pharyngitis. Will perform rapid strep testing. This tests positive. Given mildly allergic to amoxicillin : will prescribe Cefuroxime 250mg PO BID x4 d. Educated on the importance of taking the entire duration to reduce risk of complication (scarlet fever, rheumatic fever, abscess, mastoiditis). They are given a one-time dose of 0.6mg/kg PO (Max 10mg) dexamethasone as this has been shown to decrease the time to pain relief. Viral testing negative. CT unremarkable. Disposition: The patient was discharged home in stable condition. The patient will follow up with their PCP . They are given strict return precautions that include S/S of glomerulonephritis (foamy urine, edema) as well as other new/unmanaged/worsened symptoms. Differential Diagnosis Diff
[2023-03-03] MEDS: ACETAMINOPHEN 500 MG TABLET 1000 MG PO (07:58)
[2023-03-03 07:59] LABS: Strep Group A RT-PCR DETECTED (Negative)
[2023-03-03] MEDS: DEXAMETHASONE 2 MG TABLET 10 MG PO (07:59)
[2023-03-03 08:07] LABS: Estimated CRCL calculation 127 ml/min; Estimated Glomerular Filt Rate > 60
[2023-03-03 08:45] LABS: Influenza A QL RT-PCR Negative (Negative); Influenza B QL RT-PCR Negative (Negative); RSV RNA, RT-PCR Negative (Negative); SARS-CoV-2 RNA PCR Negative (Negative)
[2023-03-03] MEDS: cefuroxime axetiL 250 MG TABLET PO (09:18)
== END 2023-03-03 09:19 | disposition home or self-care (01) ==
PROVIDERS: Emergency Provider Student in an Organized Health Care Education/Training Program; PCP Family Medicine
DX: J02.0 Streptococcal pharyngitis (principal); Z20.822 Contact with and (suspected) exposure to COVID-19
CPT/HCPCS: 70491; 87637; 87651; 99284; A9270; J8540; Q9967

== ENCOUNTER 2023-03-13 16:38 | Emergency (ER) | payer BC, SELFPAY ==
[2023-03-13 16:41] VITALS: BP 147/94; PULSE 97; RESP 20; TEMP 36.7; O2SAT 100
[2023-03-13 17:35] LABS: Influenza A QL RT-PCR Negative (Negative); Influenza B QL RT-PCR Negative (Negative); RSV RNA, RT-PCR Negative (Negative); SARS-CoV-2 RNA PCR Negative (Negative)
--- NOTE | 2023-03-13 17:50 | ED.GENADULT ---
HPI - General Adult General Chief complaint: Unspecified Stated complaint: sore throat Time Seen by Provider: 03/13/23 16:51 History of Present Illness HPI narrative: 27-year-old male present to the emergency department for evaluation of persistent sore throat. Patient was diagnosed with strep throat and completed a course of antibiotics. Patient states he is still having strep symptoms. Related Data Allergies Allergy/AdvReac Type Severity Reaction Status Date / Time amoxicillin Allergy Hives Verified 03/13/23 18:12 Review of Systems Review of Systems: All systems reviewed & are unremarkable except as noted in HPI and below PMFSH Past Medical History Medical History (Updated 03/14/23 @ 00:00 by Chris Gomez) Seasonal allergies Surgical History Surgical History No pertinent past surgical history Social History Social History Smoking status: Never smoker Gender identity (if verbalized by the patient): Male Exam Narrative: APPEARANCE: Well appearing, no pain, no distress, well-nourished. HEAD: normocephalic, atraumatic. EYES: PERRLA/EOMI, conjunctivae clear. NOSE: Normal no drainage EARS:TMS clear with good light reflex. THROAT: No posterior pharynx swelling but patient does have tonsillar exudate NECK: Supple. No adenopathy, no masses. RESPIRATORY: Airway patent, respirations nonlabored. Clear to auscultation bilaterally, no rales, rhonchi, wheezing. CARDIOVASCULAR: Regular rate and rhythm without murmurs rubs or gallops. ABDOMINAL: Soft, nontender, nondistended, normal bowel sounds MUSCULOSKELETAL: Moves all extremities. Strength/ROM intact, No edema, No calf tenderness. NEURO: Alert. Cranial nerves II through XII intact. Grossly intact SKIN: Warm, dry. Normal Color Course Vital Signs Vital signs: Vital Signs Temperature 98.0 F 03/13/23 16:41 Pulse Rate 97 03/13/23 16:41 Respiratory Rate 20 03/13/23 16:41 Blood Pressure 147/94 H 03/13/23 16:41 Pulse Oximetry 100 03/13/23 16:41 Oxygen Delivery Room Air 03/13/23 16:41 Temperature 98.0 F 03/13/23 16:41 Pulse Rate 97 03/13/23 16:41 Respiratory Rate 20 03/13/23 16:41 Blood Pressure 147/94 H 03/13/23 16:41 Pulse Oximetry 100 03/13/23 16:41 Oxygen Delivery Room Air 03/13/23 16:41 Medical Decision Making Vital Signs Vital Signs: Vital Signs Temperature 98.0 F 03/13/23 16:41 Pulse Rate 97 03/13/23 16:41 Respiratory Rate 20 03/13/23 16:41 Blood Pressure 147/94 H 03/13/23 16:41 Pulse Oximetry 100 03/13/23 16:41 Oxygen Delivery Room Air 03/13/23 16:41 Temperature 98.0 F 03/13/23 16:41 Pulse Rate 97 03/13/23 16:41 Respiratory Rate 20 03/13/23 16:41 Blood Pressure 147/94 H 03/13/23 16:41 Pulse Oximetry 100 03/13/23 16:41 Oxygen Delivery Room Air 03/13/23 16:41 Lab Data Labs: Lab Results 03/13/23 Range/Units 16:54 Influenza A (RT-PCR) Negative (Negative) Influenza B (RT-PCR) Negative (Negative) RSV (RT-PCR) Negative (Negative) SARS-CoV-2 RNA (RT-PCR) Negative (Negative) Discharge Plan Discharge Clinical Impression: Acute streptococcal pharyngitis Patient Disposition: Home, Self-Care Condition: Stable Instructions: Antibiotic Form, Probiotic (By mouth), Strep Throat (DC) Additional Instructions: Antibiotic as directed until completed. You were treated with a 1 time dose of steroid. If you have any worsening symptoms then please call or return to the emergency department. Have close follow-up with your primary care physician. While you are on the antibiotic take a probiotic. Prescriptions: New clindamycin HCl 300 mg capsule 300 mg PO Q8H 7 Days Qty: 21 0RF No Action amoxicillin 875 mg tablet 875 mg PO Q12H Qty: 14 0RF prednisone 20 mg tablet 60 mg PO WILFRID
[2023-03-13] MEDS: CLINDAMYCIN HCL 150 MG CAP 300 MG PO (18:12)
== END 2023-03-13 18:21 | disposition home or self-care (01) ==
PROVIDERS: Emergency Provider Emergency Medicine; PCP Family Medicine
DX: J02.0 Streptococcal pharyngitis (principal); Z20.822 Contact with and (suspected) exposure to COVID-19
CPT/HCPCS: 87637; 96372; 99283; A9270; J1100

== ENCOUNTER 2023-04-24 23:49 | Emergency (ER) | payer BC, SELFPAY ==
--- NOTE | ~2023-04-24 | CT_ITS ---
CT of the Abdomen and Pelvis: Indication: Abdominal pain Technique: 2.5 mm axial scans were obtained through the abdomen and pelvis following intravenous adm inistration of 100 cc of Omnipaque 350. Dose reduction technique was used on this scan by utilizing a utomated exposure control and iterative reconstruction technique. The dose-length product (DLP) was 1 582.06 mGy-cm. COMPARISON: 03/04/2020 Findings: Scans through the lung bases are unremarkable. The liver, spleen, pancreas, gallbladder, adrenals and kidneys are within normal limits. No evidence of aortic aneurysm. No lymphadenopathy. No bowel obstruction or bowel wall thickening. There is no evidence to suggest acute appendicitis. Images through the pelvis were performed. Urinary bladder is normal. Prostate gland and seminal vesic les are unremarkable. Impression: No significant abnormalities seen. Reviewed, dictated and finalized at [facility]. DEVELOPER OPERATOR Impression: No significant abnormalities seen.
[2023-04-24 23:54] VITALS: BP 129/85; PULSE 94; RESP 18; TEMP 36.6; O2SAT 99
[2023-04-25 01:10] LABS: Basophils Absolute Auto 0.1 K/mm3 (0.0-0.1); Basophils Percent Auto 0.7 % (0.2-1.2); Eosinophils Absolute Auto 0.1 K/mm3 (0-0.3); Eosinophils Percent Auto 1.4 % (0-4.4); Hematocrit 38.1 % (42.0-52.0); Hemoglobin 12.3 g/dL (14.0-18.0); Immature Granulocyte Absolute 0.03 K/mm3 (0.00-0.031); Immature Granulocyte Percent A 0.3 % (0-0.5); Lymphocytes Absolute Auto 2.83 K/mm3 (0.9-3.2); Lymphocytes Percent Auto 30.7 % (18.3-44.2); Mean Corpuscular HGB Conc 32.3 g/dl (32-36); Mean Corpuscular Hemoglobin 26.2 pg (26-34); Mean Corpuscular Volume 81.2 fl (80-100); Mean Platelet Volume 9.9 fl (7.4-10.4); Monocytes Absolute Auto 1.1 K/mm3 (0.1-0.6); Monocytes Percent Auto 12.1 % (2.6-8.5); Neutrophils Absolute Auto 5.1 K/mm3 (1.3-6.7); Neutrophils Percent Auto 54.8 % (45.5-73.1); Platelet Count Result 336 k/mm3 (150-375); Red Blood Count 4.69 M/mm3 (4.6-6.20); Red Cell Distribution Width 14.8 % (11.5-14.5); White Blood Count 9.2 K/mm3 (4.5-10.0)
[2023-04-25 01:13] LABS: Appearance Urine Clear (Clear); Bilirubin Urine Negative (Negative); Blood Urine Negative (Negative); Color Urine Yellow (Yellow); Glucose Urine UA Negative (Negative); Ketones Urine Negative (Negative); Leukocyte Esterase Ur Negative LEU/UL (Negative); Nitrate Urine Negative (Negative); Protein Urine Negative (Negative); Specific Grav Ur 1.017 (1.001-1.035); pH Urine 6.5 (5.0-9.0)
[2023-04-25 01:14] LABS: Add Urine Microscopic? NO
[2023-04-25 01:22] LABS: Alanine Aminotransferase 26 U/L (6-50); Albumin Level 3.8 g/dL (3.5-5.1); Alkaline Phosphatase 62 U/L (38-126); Anion Gap 3 mmol/L (8-16); Aspartate Amino Transferase 34 U/L (17-59); Bilirubin,Total 0.4 mg/dL (0.2-1.3); Blood Urea Nitrogen 17 mg/dL (9-20); Carbon Dioxide 30 mmol/L (22-30); Chloride 104 mmol/L (98-107); Estimated CRCL calculation 155 ml/min; Estimated Glomerular Filt Rate > 60; Glucose 106 mg/dL (65-110); Lipase 65 U/L (23-300); Potassium 3.6 mmol/L (3.4-5.0); Sodium 137 mmol/L (137-145)
[2023-04-25] MEDS: SODIUM CHLORIDE 0.9% IV 1,000 ML 999 ML IV CONT (01:26)
[2023-04-25] MEDS: ONDANSETRON INJ 4 MG/2 ML VIAL IV PUSH (01:26)
[2023-04-25 01:30] VITALS: BP 122/73; PULSE 97; RESP 19; O2SAT 99
--- NOTE | 2023-04-25 01:42 | ED.NAVMDI ---
HPI - Nausea/Vomiting/Diarrhea General Chief complaint: Nausea/Vomiting/Diarrhea Stated complaint: generalized weakness, bodyaches, nausea Time Seen by Provider: 04/25/23 01:18 Source: patient Mode of arrival: ambulatory Limitations: no limitations History of Present Illness HPI Narrative: This is a 27 year old male that presents to the ER for nausea and diarrhea. Ongoing over the last 2 days. Reports some epigastric discomfort. Denies fever, or vomiting. Related Data Allergies Allergy/AdvReac Type Severity Reaction Status Date / Time amoxicillin Allergy Hives Verified 04/25/23 01:08 Review of Systems Review of Systems: CONSTITUTIONAL: Denies fever GASTROINTESTINAL: Reports abdominal pain, nausea, and diarrhea. Denies vomiting All systems reviewed & are unremarkable except as noted in HPI and below PMFSH Past Medical History Medical History (Updated 05/02/23 @ 19:16 by Isadora Branham PA-C) Seasonal allergies Surgical History Surgical History No pertinent past surgical history Social History Social History Smoking status: Never smoker Gender identity (if verbalized by the patient): Male Exam Narrative: GENERAL: Well-appearing, well-nourished, and in no acute distress. HEAD: Normocephalic, atraumatic. EYES: EOMI. CHEST: Clear to auscultation. No respiratory distress. No wheezes rales or rhonchi HEART: Regular rate and rhythm. No murmur heard. Normal peripheral pulses. ABDOMEN: Soft, nondistended, normal active bowel sounds. Mild tenderness to palpation in the epigastrium, without guarding EXTREMITIES: Normal range of motion. No edema. SKIN: Warm, dry, no rash. NEURO: No focal deficits. Alert and oriented x3. PSYCH: Normal mood and affect Course Course Emergency Course: Patient updated on his workup thus far, resting comfortably Vital Signs Vital signs: Vital Signs Temperature 97.8 F 04/24/23 23:54 Pulse Rate 94 04/24/23 23:54 Respiratory Rate 18 04/24/23 23:54 Blood Pressure 129/85 04/24/23 23:54 Pulse Oximetry 99 04/24/23 23:54 Oxygen Delivery Room Air 04/24/23 23:54 Temperature 97.8 F 04/24/23 23:54 Pulse Rate 90 04/25/23 04:47 Respiratory Rate 18 04/25/23 04:47 Blood Pressure 120/79 04/25/23 04:47 Pulse Oximetry 100 04/25/23 04:47 Oxygen Delivery Room Air 04/24/23 23:54 MDM - Nausea/Vomiting/Diarrhea MDM Narrative Medical decision making narrative: Patient presents to the ER for abdominal pain and diarrhea. He is afebrile and nontoxic appearing. His vitals are stable. CBC shows normocytic anemia with hemoglobin of 12.3. Metabolic panel without concerning findings. UA without evidence of infection. Care taken over by Dr. Reina at shift change pending CT scan results Differential Diagnosis Differential diagnosis: Likely traveler's diarrhea, food poisoning, dehydration and other (colitis) Lab Data Attestation: I reviewed the patient's lab results. 04/25/23 01:04 04/25/23 01:04 Labs: Lab Results 04/25/23 Range/Units 01:04 WBC 9.2 (4.5-10.0) K/mm3 RBC 4.69 (4.6-6.20) M/mm3 Hgb 12.3 L (14.0-18.0) g/dL Hct 38.1 L (42.0-52.0) % MCV 81.2 (80-100) fl MCH 26.2 (26-34) pg MCHC 32.3 (32-36) g/dl RDW 14.8 H (11.5-14.5) % Plt Count 336 (150-375) k/mm3 MPV 9.9 (7.4-10.4) fl Immature Gran % (Auto) 0.3 (0-0.5) % Neut % (Auto) 54.8 (45.5-73.1) % Lymph % (Auto) 30.7 (18.3-44.2) % Barren % (Auto) 12.1 H (2.6-8.5) % Eos % (Auto) 1.4 (0-4.4) % Baso % (Auto) 0.7 (0.2-1.2) % Lymph # (Auto) 2.83 (0.9-3.2) K/mm3 Barren # (Auto) 1.1 H (0.1-0.6) K/mm3 Eos # (Auto) 0.1 (0-0.3) K/mm3 Baso # (Auto) 0.1 (0.0-0.1) K/mm3 Abs Immat Gran (auto) 0.03 (0.00-0.031) K/mm3 Absolute Neuts (auto) 5.1 (1.3-6.7) K/mm3 Absolute Nucleated RBC 0.0
[2023-04-25 01:46] LABS: Influenza A QL RT-PCR Negative (Negative); Influenza B QL RT-PCR Negative (Negative); RSV RNA, RT-PCR Negative (Negative); SARS-CoV-2 RNA PCR Negative (Negative)
[2023-04-25] MEDS: PANTOPRAZOLE SODIUM IV 40 MG VIAL IV PUSH (02:15)
[2023-04-25 03:30] VITALS: BP 129/78; PULSE 92; RESP 18; O2SAT 98
[2023-04-25 04:47] VITALS: BP 120/79; PULSE 90; RESP 18; O2SAT 100
== END 2023-04-25 04:48 | disposition home or self-care (01) ==
PROVIDERS: Emergency Provider Physician Assistant; PCP Family Medicine
DX: R19.7 Diarrhea, unspecified (principal); R10.13 Epigastric pain; Z20.822 Contact with and (suspected) exposure to COVID-19
CPT/HCPCS: 36415; 74177; 80053; 81003; 83690; 85025; 87637; 96361; 96374; 96375; 99284; C9113; J2405; J7030; Q9967

== ENCOUNTER 2023-09-15 15:02 | Emergency (ER) | payer BC, SELFPAY ==
[2023-09-15 15:06] VITALS: BP 146/88; PULSE 95; RESP 16; TEMP 36.2; O2SAT 98
[2023-09-15] MEDS: FLUORESCEIN SOD 1 MG/STRIP (17:00)
[2023-09-15] MEDS: TETRACAINE HCL 0.5% OPHTH SOLN 4 ML BTL 1 DROP (17:00)
[2023-09-15] MEDS: DACRIOSE EYE IRRIGATION 118 ML BOTTLE (17:00)
--- NOTE | 2023-09-15 17:01 | ED.EYEPROB ---
HPI - Eye Problem General Chief complaint: Eye Problems Stated complaint: blurred vision, eyes burn Time Seen by Provider: 09/15/23 16:58 Source: patient Mode of arrival: ambulatory Limitations: no limitations History of Present Illness HPI Narrative: Christian is a 28-year-old male patient presenting to the clinic today with complaints of over the past several days he has had some blurry vision, eye burning and watering. He reports a couple months ago he was diagnosed with conjunctivitis and finished his antibiotic eyedrops. He denies any known injury to the eyes. Has been having to use a towel to can a dab over his eyes. Denies purulent discharge. Related Data Allergies Allergy/AdvReac Type Severity Reaction Status Date / Time amoxicillin Allergy Hives Verified 04/25/23 01:08 Review of Systems Review of Systems: Pertinent positives per HPI. Patient denies any fever, chills, rash, headache, dizziness, cough, runny nose, sore throat, shortness of breath, chest pain, palpitations, nausea, vomiting, diarrhea, constipation, abdominal pain, or any urinary issues. PMFSH Past Medical History Medical History (Updated 09/15/23 @ 17:15 by Hammad Fair APRN) Seasonal allergies Surgical History Surgical History No pertinent past surgical history Social History Social History Smoking status: Never smoker Gender identity (if verbalized by the patient): Male Comments At the time of my signature, I reviewed and agree with the nursing past medical, surgical, social, and family history. There is no relevant family history pertinent to the patient complaint. Exam Narrative: General: Well-developed, well nourished, in no apparent distress Head: Normocephalic, atraumatic Eyes: Pupils equally round and reactive to light bilaterally, EOM intact, sclera and conjunctive mildly injected, no discharge, lids normal Ears: TMs intact and clear, ear canals clear, no drainage, grossly hearing normal. Nose: Nares patent, no discharge, no inflammation, no sinus tenderness. Mouth: Oropharynx without lesions or masses, good dentition, MMM. Neck: Supple, trachea midline, no enlargement of anterior or posterior cervical nodes, no thyroid masses or goiter palpable. Cardio: Regular rate and rhythm, s1 and s2 normal, no murmur appreciated. Resp: Clear to auscultation bilaterally anteriorly and posteriorly, no rhonchi, rales, wheezing or rubs Course Course Emergency Course: Portions of this record may have been created with voice recognition software. Vital Signs Vital signs: Vital Signs Temperature 36.2 C L 09/15/23 15:06 Pulse Rate 95 09/15/23 15:06 Respiratory Rate 16 09/15/23 15:06 Blood Pressure 146/88 H 09/15/23 15:06 Pulse Oximetry 98 09/15/23 15:06 Oxygen Delivery Room Air 09/15/23 15:06 Temperature 36.2 C L 09/15/23 15:06 Pulse Rate 95 09/15/23 15:06 Respiratory Rate 16 09/15/23 15:06 Blood Pressure 146/88 H 09/15/23 15:06 Pulse Oximetry 98 09/15/23 15:06 Oxygen Delivery Room Air 09/15/23 15:06 Vital signs reviewed Procedures Other Procedure Procedure 1: Other Procedure: Topical anesthetic was instilled with good anesthesia using 1gtt of opth anesthetic agent (tetracaine). Fluorescein stain of the bilateral eye was performed with epitheal defect to the outer bilateral corneal- outside visual field. NO FB, ulcer or dendritic lesions. Upper lid was everted and no FB or lesions were noted. NO Christiano sign. Normal saline irrigation eye solution was performed and the patient tolerated the procedure well, no adverse reaction or complications. MDM - Eye Problem MDM Narrative Medical decision making narrative: At the time of visit patient is resting comfortably on the exam table. Patient appears to be nontoxic. Procedures: Wood's lamp exam was
[2023-09-15 17:34] VITALS: BP 140/88; PULSE 86; RESP 16; TEMP 36.6; O2SAT 98
== END 2023-09-15 17:36 | disposition home or self-care (01) ==
LOC: ANHED 17:17
PROVIDERS: Emergency Provider Nurse Practitioner Family; PCP Family Medicine
DX: H04.123 Dry eye syndrome of bilateral lacrimal glands (principal)
CPT/HCPCS: 99283; A9270

== ENCOUNTER 2023-11-15 20:46 | Emergency (ER) | payer BC, SELFPAY ==
[2023-11-15 21:31] VITALS: BP 140/88; PULSE 110; RESP 16; TEMP 36.9; O2SAT 98
[2023-11-16 01:28] VITALS: BP 141/81; PULSE 92; RESP 16; TEMP 36.4; O2SAT 95
--- NOTE | 2023-11-16 02:19 | ED.GENADULT ---
HPI - General Adult General Chief complaint: Neuro Symptoms/Deficit Stated complaint: right side facial numbness since last night 0300 Time Seen by Provider: 11/16/23 02:19 History of Present Illness HPI narrative: This is a 28-year-old male presenting ED with chief complaint of right-sided facial numbness. Starting yesterday he developed numbness on the right side of his face. He has been having difficulty eating and chewing food. He is drooling. Patient does not have any weakness to his upper or lower extremities. No history of trauma. No history of herpes or mouth sores. No recent viral illness. Patient does not have any ear pain or loss of hearing. Related Data Allergies Allergy/AdvReac Type Severity Reaction Status Date / Time amoxicillin Allergy Hives Verified 11/15/23 21:31 [facility] Past Medical History Medical History (Updated 11/16/23 @ 02:26 by Baltazar Reina MD) Seasonal allergies Surgical History Surgical History No pertinent past surgical history Social History Social History Smoking status: Never smoker Gender identity (if verbalized by the patient): Male Exam Narrative: APPEARANCE: No apparent distress. Head: TMs are normal bilaterally EYES: EOMI, no scleral injection or corneal involvement NOSE: Atraumatic NECK: Trachea midline RESPIRATORY: No increased rate of breathing CARDIOVASCULAR: RRR, ABDOMINAL: Non-distended MUSCULOSKELETAl: No obvious deformities NEURO: Alert. Right-sided facial paralysis without forehead sparing. The rest of the cranial nerves are intact. Motor function, coordination and sensation are intact in for 4 extremities. Gait is normal. SKIN:: Warm, dry. Normal color PSYCHIATRIC: Normal affect Course Vital Signs Vital signs: Vital Signs Temperature 98.4 F 11/15/23 21:31 Pulse Rate 110 H 11/15/23 21:31 Respiratory Rate 16 11/15/23 21:31 Blood Pressure 140/88 11/15/23 21:31 Pulse Oximetry 98 11/15/23 21:31 Oxygen Delivery Room Air 11/15/23 21:31 Temperature 97.5 F L 11/16/23 01:28 Pulse Rate 92 11/16/23 01:28 Respiratory Rate 16 11/16/23 01:28 Blood Pressure 141/81 H 11/16/23 01:28 Pulse Oximetry 95 11/16/23 01:28 Oxygen Delivery Room Air 11/15/23 21:31 Medical Decision Making MDM Narrative Medical decision making narrative: -Course: 28-year-old male presenting with right-sided facial paralysis without forehead sparing. 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 Patient educated on symptoms and management. Given prednisone and valacyclovir. Patient be discharged with primary care follow-up -DDX includes but is not limited to: Suárez's palsy, CVA -Interventions: Prednisone, valacyclovir -Shared decision making / Disposition: Discharge -RX prednisone, valacyclovir Vital Signs Vital Signs: Vital Signs Temperature 98.4 F 11/15/23 21:31 Pulse Rate 110 H 11/15/23 21:31 Respiratory Rate 16 11/15/23 21:31 Blood Pressure 140/88 11/15/23 21:31 Pulse Oximetry 98 11/15/23 21:31 Oxygen Delivery Room Air 11/15/23 21:31 Temperature 97.5 F L 11/16/23 01:28 Pulse Rate 92 11/16/23 01:28 Respiratory Rate 16 11/16/23 01:28 Blood Pressure 141/81 H 11/16/23 01:28 Pulse Oximetry 95 11/16/23 01:28 Oxygen Delivery Room Air 11/15/23 21:31 Discharge Plan Discharge Clinical Impression: Suárez's palsy Patient Disposition: Home, Self-Care Condition: Stable Instructions: Antibiotic Form, Suárez Palsy (ED) Additional Instructions: Please use eyedrops as needed to keep her eyes moist tries. Please use and eye patch at night. Please follow-up with your primary care physician for further management. Take the prescribed medications as directed. Return to ED if you develop weakness to any extremity, vision changes or feel like your condition is getting worse.
[2023-11-16] MEDS: predniSONE 20 MG TABLET 60 MG PO (02:35)
[2023-11-16] MEDS: valACYclovir HCL 500 MG TABLET 1000 MG PO (02:35)
[2023-11-16 02:39] VITALS: BP 118/76; PULSE 86; RESP 16; TEMP 36.6; O2SAT 98
== END 2023-11-16 02:40 | disposition home or self-care (01) ==
PROVIDERS: Emergency Provider Emergency Medicine; PCP Family Medicine
DX: G51.0 Bell's palsy (principal)
CPT/HCPCS: 99283; A9270; J7512

== ENCOUNTER 2024-08-29 12:41 | Emergency (ER) | payer SELFPAY ==
--- NOTE | ~2024-08-29 | CT_ITS ---
EXAMINATION: CT abdomen pelvis w con DATE: 08/29/2024 14:41 INDICATION: Lower abdominal pain TECHNIQUE: Computed tomography (CT) of the abdomen and pelvis was performed with 100 mL Omnipaque-350 intravenous contrast. Automated exposure control and iterative reconstruction technique were employe d. The dose-length product was 1272.24 mGy-cm. COMPARISON: None FINDINGS: Lung bases are clear. Heart size is normal. No pericardial or pleural effusion. Liver, gallbladder, s pleen, pancreas, bilateral adrenal glands and kidneys are normal. Bowels including the appendix are n ormal. Bladder is normal. No free intraperitoneal gas or fluid. No pathologically enlarged abdominal or pelvic lymphadenopathy. Small fat-containing left inguinal hernia. Mild thoracic and lumbar spondy losis. IMPRESSION: 1. No acute intra-abdominal/pelvic process. Reviewed, dictated and finalized at location B.
--- NOTE | 2024-08-29 12:47 | PC.NURSE ---
Patient advised to not drink or eat anything due to abdominal pain prior to seeing a provider. Patient eating chips and drinking water in waiting room.
[2024-08-29 12:55] VITALS: BP 143/81; PULSE 87; RESP 17; TEMP 36.7; O2SAT 97
--- OUTSIDE RECORDS SUMMARY | 2024-08-29 12:56 | XMS_ITS | Clinical Summary ---
Author Organization [facility] Address [address] [place] [address] Care Team Providers Care Director Of Casework Name Role Phone Unknown, Provider Primary Care Provider Unavaila ble Source Comments [facility],non-owned Affiliates and Associated Physician Practices is amultiple site organization consisting of ambulatory clinics and hospital sitesin [place], [place], [place] and [place]. This disclosure is being madepursuant to the Care Everywhere program and may not contain all information available regarding this patient. Last updated 17.[facility] [employer] Allergies No known active allergies Medications * Be aware that medications may not be up to date on this document. Alwaysverify current medications with the patient. acetaminophen-c odeine (TYLENOL #3) 300-30 MG tablet Take 1 tablet by mouth q6h PRN (Pain). 15 tablet 0 03/28/2017 Active cyclopentolate 2% (Cyclogyl) 2 % ophthalmic solution Instill 1 (one) drop into right eye 2 times daily 5 mL 2 09/15/2022 Active prednisoLONE acetate (Pred Forte) 1 % ophthalmic suspension Instill 1 (one) drop into both eyes 4 times daily 15 mL 09/15/2022 Active Active Problems No known active problems Immunizations Immunization Administration Dates Next Due TDAP (7yrs+) 03/28/2017 Social History Tobacco Use Types Packs/Day Years Used Date Smoking Tobacco: Never Smokeless Tobacco: Never Tobacco Cessation:Counseling Given: Not Answered Alcohol Use Standard Drinks/Week Comments Yes 0 (1 standard drink = 0.6 oz pur e alcohol) Sex and Gender Information Value Date Recorded Sex Assigned at Not on file 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 Gender Identity Not on file Sexual Orientation Not on file Last Filed Vital Signs Vital Sign Reading Time Taken Comments Blood Pressure 122/77 03/28/2017 10:00 PM FLEET DISPATCH MANAGER Pulse 94 03/28/2017 10:00 PM FLEET DISPATCH MANAGER Temperature 38.6 C (101.5 F) 03/28/2017 8:09 PM FLEET DISPATCH MANAGER Respiratory Rate 17 03/28/2017 10:00 PM FLEET DISPATCH MANAGER Oxygen Saturation 96% 03/28/2017 8:17 PM FLEET DISPATCH MANAGER Inhaled Oxygen Concentration - - Weight 90.7 kg (200 lb) 03/28/2017 8:09 PM FLEET DISPATCH MANAGER Height 180.3 cm (5' 11) 03/28/2017 8:09 PM FLEET DISPATCH MANAGER Body Mass Index 27.89 03/28/2017 8:09 PM FLEET DISPATCH MANAGER Plan of Treatment Health Maintenance Due Date Last Done Comments HIV SCREENING 2008 HEPATITIS C SCREENING 08/30/2011 HEPATITIS B VACCINE (1 of 3 - 19+ 3-dose series) 2012 COVID-19 VACCINE (2023-2 5 season) 2023 DEPRESSION SCREENING 03/13/2024 INFLUENZA VACCINE (Season Ended) 2024 DTAP/TDAP/TD VACCINES (2 - T d or Tdap) 03/28/2027 03/28/2017 ZOSTER VACCINE (1 of 2) 09/04/2043 HIB VACCINE Aged Out No longer eligi ble based on patient's age to complete this topic HPV VACCINE Aged Out No longer eligi ble based on patient's age to complete this topic MENINGOCOCCAL (Group B) VACC INE SHARED DECISION-MAKING Aged Out No longer eligibl e based on patient's age to complete this topic MENINGOCOCCAL GROUPS A/C/Y/W VACCINE Aged Out No longer eligible b ased on patient's age to complete this topic PNEUMOCOCCAL VACCINE Aged Out No long er eligible based on patient's age to complete this topic Insurance [address] [place] [address] [facility] MEDICAID Care Teams Director Of Casework Relationship Specialty Start Date End Date Unknown, Provider PCP - General 07/03/17
--- OUTSIDE RECORDS SUMMARY | 2024-08-29 12:56 | XMS_ITS | Clinical Summary ---
Author Organization [facility] Address [address] [place] [address] Phone Care Team Providers Care Newspaper Columnist Name Role Phone Provider, None Primary Care Provider Unavailabl e Allergies No known active allergies Medications predniSONE (DELTASONE) 20 MG Tablet Three tablets daily x3 days then 2 tablets daily x3 days then 1 tablet daily x3 days then 1/2 tablet daily for 4 days 20 Tablet 11/22/2023 Active Social History Tobacco Use Types Packs/Day Years Used Date Smoking Tobacco: Never Smokeless Tobacco: Never Tobacco Cessation:Counseling Given: Not Answered Alcohol Use Standard Drinks/Week Comments Yes 0 (1 standard drink = 0.6 oz pur e alcohol) occasionally Sex and Gender Information Value Date Recorded Sex Assigned at Not on file Legal Sex Male 12:15 AM CDT Gender Identity Not on file Sexual Orientation Not on file Last Filed Vital Signs Vital Sign Reading Time Taken Comments Blood Pressure 152/92 11/22/2023 5:08 AM CDT Pulse 79 11/22/2023 5:08 AM CDT Temperature 35.8 C (96.5 F) 11/22/2023 1:32 AM CDT Respiratory Rate 16 11/22/2023 5:08 AM CDT Oxygen Saturation 98% 11/22/2023 5:08 AM CDT Inhaled Oxygen Concentration - - Weight 120.2 kg (265 lb) 11/22/2023 1:32 AM CDT Height 180.3 cm (5' 11) 11/22/2023 1:32 AM CDT Body Mass Index 36.96 11/22/2023 1:32 AM CDT Plan of Treatment Not on file Insurance MEDICAID [place] Care Teams Newspaper Columnist Relationship Specialty Start Date End Date Provider, [place] PCP - General 11/22/23
--- OUTSIDE RECORDS SUMMARY | 2024-08-29 13:31 | XMS_ITS | Clinical Summary ---
Author Organization [facility] Address [address] [place] [address] Phone Care Team Providers Care Inner Tube Tuber Machine Operator Name Role Phone Provider, None Primary Care [...] Insurance [place]ICAID [place] Care Teams Inner Tube Tuber Machine Operator Relationship Specialty Start Date End Date Provider, [place] PCP - General 11/22/23
--- OUTSIDE RECORDS SUMMARY | 2024-08-29 13:31 | XMS_ITS | Clinical Summary ---
Author Organization [facility] Address [address] [place] [address] Care Team Providers Care Building Associate Name Role Phone Unknown, Provider Primary Care Provider Unavaila ble Source Comments [facility],non-owned Affiliates and Associated Physician Practices is amultiple site organization consisting of ambulatory clinics and hospital sitesin [place], [place], [place] and [place]. This disclosure is being madepursuant to the Care Everywhere program and may not contain all information available regarding this patient. 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 Gender Identity Not on file Sexual Orientation Not on file Last Filed Vital Signs Vital Sign Reading Time Taken Comments Blood Pressure 122/77 03/28/2017 10:00 PM MODEL ENGINE MECHANIC Pulse 94 03/28/2017 10:00 PM MODEL ENGINE MECHANIC Temperature 38.6 C (101.5 F) 03/28/2017 8:09 PM MODEL ENGINE MECHANIC Respiratory Rate 17 03/28/2017 10:00 PM MODEL ENGINE MECHANIC Oxygen Saturation 96% 03/28/2017 8:17 PM MODEL ENGINE MECHANIC Inhaled Oxygen Concentration - - Weight 90.7 kg (200 lb) 03/28/2017 8:09 PM MODEL ENGINE MECHANIC Height 180.3 cm (5' 11) 03/28/2017 8:09 PM MODEL ENGINE MECHANIC Body Mass Index 27.89 03/28/2017 8:09 PM MODEL ENGINE MECHANIC Plan of Treatment Health Maintenance Due Date [...] to complete this topic Insurance [address] [place] [address] [facility] MEDICAID Care Teams Building Associate Relationship Specialty Start Date End Date Unknown, Provider PCP - General 07/03/17
--- NOTE | 2024-08-29 13:45 | ECG_ITS ---
Test Date: 2024-08-29 13:53:40 Measurements Intervals [place] Rate: 81 P: 54 VA: 172 QRS: 21 QRSD: 92 T: 27 QT: 355 QTc: 413 Interpretive Statements SINUS RHYTHM NORMAL ECG No previous ECG available for comparison Electronically Signed On 08-29-2024 13:59:26 CDT by Feliz Arias D.O.
[2024-08-29] MEDS: MECLIZINE HCL 25 MG TABLET PO (13:53)
[2024-08-29] MEDS: SODIUM CHLORIDE 0.9% IV 1,000 ML 999 ML IV CONT (13:53)
[2024-08-29] MEDS: ONDANSETRON INJ 4 MG/2 ML VIAL IV PUSH (13:53)
[2024-08-29 14:15] LABS: Alanine Aminotransferase 21 U/L (6-50); Albumin Level 3.9 g/dL (3.5-5.1); Alkaline Phosphatase 60 U/L (38-126); Anion Gap 6 mmol/L (4-12); Aspartate Amino Transferase 33 U/L (17-59); Bilirubin,Total 0.4 mg/dL (0.2-1.3); Blood Urea Nitrogen 15 mg/dL (9-20); Calcium 8.7 mg/dL (8.4-10.2); Carbon Dioxide 30 mmol/L (22-30); Chloride 102 mmol/L (98-107); Estimated CRCL calculation 143 ml/min; Estimated Glomerular Filt Rate > 60; Glucose 117 mg/dL (65-110); Lipase 61 U/L (23-300); Potassium 3.7 mmol/L (3.4-5.0); Sodium 138 mmol/L (137-145); Total Protein 7.5 g/dL (6.3-8.2)
[2024-08-29 14:19] LABS: Basophils Absolute Auto 0.1 K/mm3 (0.0-0.1); Basophils Percent Auto 0.7 % (0.2-1.2); Eosinophils Absolute Auto 0.4 K/mm3 (0-0.3); Eosinophils Percent Auto 4.4 % (0-4.4); Hematocrit 39.1 % (42.0-52.0); Hemoglobin 12.8 g/dL (14.0-18.0); Immature Granulocyte Absolute 0.03 K/mm3 (0.00-0.031); Immature Granulocyte Percent A 0.3 % (0-0.5); Lymphocytes Absolute Auto 1.71 K/mm3 (0.9-3.2); Lymphocytes Percent Auto 19.2 % (18.3-44.2); Mean Corpuscular HGB Conc 32.7 g/dl (32-36); Mean Corpuscular Hemoglobin 26.4 pg (26-34); Mean Corpuscular Volume 80.8 fl (80-100); Mean Platelet Volume 10.2 fl (7.4-10.4); Monocytes Percent Auto 10.9 % (2.6-8.5); Neutrophils Absolute Auto 5.8 K/mm3 (1.3-6.7); Neutrophils Percent Auto 64.5 % (45.5-73.1); Platelet Count Result 402 k/mm3 (150-375); Red Blood Count 4.84 M/mm3 (4.6-6.20); Red Cell Distribution Width 15.4 % (11.5-14.5); White Blood Count 8.9 K/mm3 (4.5-10.0)
--- NOTE | 2024-08-29 14:26 | ED_ITS ---
HPI - Dizziness General Chief Complaint: Dizziness Stated Complaint: dizziness, weakness, abdominal pain Time Seen by Provider: 08/29/24 12:53 Source: patient Mode of arrival: ambulatory Limitations: no limitations History of Present Illness HPI Narrative: Patient is a 28-year-old male who presents the ED with report of dizziness and lower abdominal pain. Patient reports he woke up this morning with dizziness, described as other room is spinning/motion sickness. Worse with movement. Denies ever having dizziness like this before. Denies headache, vision changes, focal numbness or weakness, ear pain or ringing. Also reports some lower abdominal pain that began today. Reports mild nausea. Denies urinary complaints, diarrhea, constipation, fevers, chest pain, shortness of breath. Related Data Allergies Allergy/AdvReac Type Severity Reaction Status Date / Time amoxicillin Allergy Hives Verified 08/29/24 12:59 Review of Systems 2 Review of Systems: All systems reviewed & are unremarkable except as noted in HPI. All systems reviewed & are unremarkable except as noted in HPI and below PMFSH Past Medical History Medical History Seasonal allergies Surgical History Surgical History No pertinent past surgical history Social History Social History Smoking status: Never smoker Gender identity (if verbalized by the patient): Male Exam 2 Narrative: GENERAL: Well appearing, obese with BMI of 36.8, non-toxic, in no acute distress. HEAD: Normocephalic, atraumatic. EYES: PERRL/EOMI, conjunctiva clear. Very mild fatiguable nystagmus to L ENT: TMs clear bilaterally. No significant cerumen. NECK: Supple, normal ROM, no meningeal signs RESPIRATORY: Airway patent, respirations nonlabored. Clear to auscultation bilaterally, no rales, rhonchi, wheezing. CARDIOVASCULAR: Regular rate and rhythm without murmurs, rubs, or gallops. ABDOMINAL: Soft, mild diffuse tenderness throughout lower abdomen, nondistended. Normoactive BS. MUSCULOSKELETAL: Moves all extremities. No gross deformities. SKIN: Warm, dry, normal color. NEURO: A&O X3. Speech clear. Cranial nerves II-XII grossly intact. Steady gait. No ataxic movements. Strength 5/5 in upper and lower extremities bilaterally. No focal deficits. Equal mask inspector strength bilaterally. PSYCHIATRIC: Appropriate mood and affect. Normal interaction. Course Vital Signs Vital signs: Vital Signs Temperature 98.1 F 08/29/24 12:55 Pulse Rate 87 08/29/24 12:55 Respiratory Rate 17 08/29/24 12:55 Blood Pressure 143/81 H 08/29/24 12:55 Pulse Oximetry 97 08/29/24 12:55 Oxygen Delivery Room Air 08/29/24 12:55 Temperature 98.1 F 08/29/24 12:55 Pulse Rate 87 08/29/24 12:55 Respiratory Rate 17 08/29/24 12:55 Blood Pressure 143/81 H 08/29/24 12:55 Pulse Oximetry 97 08/29/24 12:55 Oxygen Delivery Room Air 08/29/24 12:55 MDM - Dizziness MDM Narrative Medical decision making narrative: Patient presented to ED with dizziness and lower abdominal pain that began this morning. Described as room spinning/motion sickness. Vital signs are stable upon arrival. Patient neurologically intact. No focal deficits. Reproducible with looking to the left, sitting upright. Suspicious for BPPV. EKG without ischemic changes. Basic laboratory studies are unremarkable. Stable electrolytes. Stable kidney function. UA without signs of infection. CT scan of abdomen/pelvis was obtained and unremarkable. No concerning intra- abdominal findings. Patient given meclizine, Zofran, fluids in the ED. On re-evaluation, he is feeling significantly better. Dizziness is resolved. Discussed diagnosis of BPPV, management of such, will give info on Melony maneuver and prescribe meclizine for home. Patient safe for discharge home. He feels comfortable going home. Discussed return precautions. He agrees with plan. Discharged in stable condition. Medical Records Attestation: I reviewed the patient's medical records. Lab Data Attestation: I reviewed the patient's lab results. 08/29/24 13:54 08/29/24 13:54 Labs: Lab Results 08/29/24 08/29/24 Range/Units 13:54 15:48 WBC 8.9 (4.5-10.0) K/mm3 RBC 4.84 (4.6-6.20) M/mm3 Hgb 12.8 L (14.0-18.0) g/dL Hct 39.1 L (42.0-52.0) % MCV 80.8 (80-100) fl MCH 26.4 (26-34) pg MCHC 32.7 (32-36) g/dl RDW 15.4 H (11.5-14.5) % Plt Count 402 H (150-375) k/mm3 MPV 10.2 (7.4-10.4) fl Immature Gran % (Auto) 0.3 (0-0.5) % Neut % (Auto) 64.5 (45.5-73.1) % Lymph % (Auto) 19.2 (18.3-44.2) % [place] % (Auto) 10.9 H (2.6-8.5) % Eos % (Auto) 4.4 (0-4.4) % Baso % (Auto) 0.7 (0.2-1.2) % Lymph # (Auto) 1.71 (0.9-3.2) K/mm3 [place] # (Auto) 1.0 H (0.1-0.6) K/mm3 Eos # (Auto) 0.4 H (0-0.3) K/mm3 Baso # (Auto) 0.1 (0.0-0.1) K/mm3 Abs Immat Gran (auto) 0.03 (0.00-0.031) K/mm3 Absolute Neuts (auto) 5.8 (1.3-6.7) K/mm3 Absolute Nucleated RBC 0.000 (0.0-0.012) K/mm3 Nucleated RBC % 0.0 (0.0-0.2) % Sodium 138 (137-145) mmol/L Potassium 3.7 (3.4-5.0) mmol/L Chloride 102 (98-107) mmol/L Carbon Dioxide 30 (22-30) mmol/L Anion Gap 6 (4-12) mmol/L BUN 15 (9-20) mg/dL Creatinine 0.87 (0.7-1.3) mg/dL Estim Creat Clear Calc 143 ml/min Estimated GFR > 60 (59 - ) Glucose 117 H (65-110) mg/dL Calcium 8.7 (8.4-10.2) mg/dL Total Bilirubin 0.4 (0.2-1.3) mg/dL AST 33 (17-59) U/L ALT 21 (6-50) U/L Alkaline Phosphatase 60 (38-126) U/L Total Protein 7.5 (6.3-8.2) g/dL Albumin 3.9 (3.5-5.1) g/dL Lipase 61 (23-300) U/L Urine Color Yellow (Yellow) Urine Appearance Clear (Clear) Urine pH 7.0 (5.0-9.0) Ur Specific [place] 1.041 H (1.001-1.035) Urine Protein Negative (Negative) mg/dL Urine Glucose (UA) Negative (Negative) mg/dL Urine Ketones Negative (Negative) mg/dL Ur Blood (Man) Negative (Negative) Urine Nitrate Negative (Negative) Urine Bilirubin Negative (Negative) Urine Urobilinogen 1.0 (<2.0) mg/dL Leukocyte Esterase Rfl Negative (Negative) [place]/UL Imaging Data Attestation: I personally reviewed and interpreted this imaging study as follows: Radiologist's impression: ITS Impressions Abdomen/Pelvis CT 08/29/24 14:45 IMPRESSION: 1. No acute intra-abdominal/pelvic process. ECG Data EKG #1: Attestation: I personally reviewed and interpreted this ECG as follows: ECG completion date: 08/29/24 ECG completion time: 13:53 EKG Interpretation: normal rate (81), sinus rhythm and no ST changes Discharge Plan Discharge Clinical Impression: Dizziness, Lower abdominal pain Patient Disposition: Home Condition: Stable Instructions: Antibiotic Form, Acute Abdominal Pain (ED), Benign Paroxysmal Positional Vertigo (ED), Dizziness (ED) Additional Instructions: Your workup here was reassuring. You likely have vertigo. You may use meclizine as needed for further dizziness. You may also try Meolny maneuver to reposition inner ear crystals. Utilize Zofran as needed for further nausea. Stay well hydrated. You may continue Tylenol/ibuprofen as needed for abdominal pain. Recommend follow-up with your primary care doctor for further evaluation. Return to the ED if you experience worsening or severe symptoms, severe pain, unable to keep down food or drink, passing out, severe dizziness, chest pain, shortness breath, or any other symptoms of concern. Patient Language: Maltese Prescriptions: New meclizine 25 mg tablet 25 mg PO TID PRN (Reason: dizziness) Qty: 15 0RF ondansetron 4 mg tablet,disintegrating 4 mg PO Q8H PRN (Reason: nausea and vomiting) Qty: 15 0RF Follow-up/Referrals: Vasquez Rivas MD [Primary Care Provider] - Time of Disposition: 16:06
[2024-08-29 15:55] LABS: Add Urine Microscopic? NO; Appearance Urine Clear (Clear); Bilirubin Urine Negative (Negative); Blood Urine Negative (Negative); Color Urine Yellow (Yellow); Glucose Urine UA Negative (Negative); Ketones Urine Negative (Negative); Leukocyte Esterase Ur Negative LEU/UL (Negative); Nitrate Urine Negative (Negative); Protein Urine Negative (Negative); Specific Grav Ur 1.041 (1.001-1.035)
== END 2024-08-29 16:22 | disposition home or self-care (01) ==
PROVIDERS: Emergency Provider Physician Assistant; PCP Family Medicine
DX: R42 Dizziness and giddiness (principal); R10.30 Lower abdominal pain, unspecified
CPT/HCPCS: 36415; 74177; 80053; 81003; 83690; 85025; 93005; 96361; 96374; 99284; A9270; J2405; J7030; Q9967

== ENCOUNTER 2024-09-30 22:47 | Emergency (ER) | payer SELFPAY ==
--- OUTSIDE RECORDS SUMMARY | 2024-09-30 22:49 | XMS_ITS | Clinical Summary ---
Author Organization [facility] Address [address] [place] [address] Care Team Providers Care Nonprofit Fundraiser Name Role Phone Unknown, Provider Primary Care Provider Unavaila ble Source Comments [facility],non-owned Affiliates and Associated Physician Practices is amultiple site organization consisting of ambulatory clinics and hospital sitesin [place], [place], [place] and [place]. This disclosure is being madepursuant to the Care Everywhere program and may not contain all information available regarding this patient. 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 Gender Identity Not on file Sexual Orientation Not on file Last Filed Vital Signs Vital Sign Reading Time Taken Comments Blood Pressure 122/77 03/28/2017 10:00 PM HOTEL SUPERINTENDENT Pulse 94 03/28/2017 10:00 PM HOTEL SUPERINTENDENT Temperature 38.6 C (101.5 F) 03/28/2017 8:09 PM HOTEL SUPERINTENDENT Respiratory Rate 17 03/28/2017 10:00 PM HOTEL SUPERINTENDENT Oxygen Saturation 96% 03/28/2017 8:17 PM HOTEL SUPERINTENDENT Inhaled Oxygen Concentration - - Weight 90.7 kg (200 lb) 03/28/2017 8:09 PM HOTEL SUPERINTENDENT Height 180.3 cm (5' 11) 03/28/2017 8:09 PM HOTEL SUPERINTENDENT Body Mass Index 27.89 03/28/2017 8:09 PM HOTEL SUPERINTENDENT Plan of Treatment Health Maintenance Due Date Last Done Comments HIV SCREENING 2008 HEPATITIS C SCREENING 08/30/2011 HEPATITIS B VACCINE (1 of 3 - 19+ 3-dose series) 2012 HPV VACCINE (1 - 3-dose SCDM series) 2020 COVID-19 VACCINE ( - 2023-2 5 season) 2023 DEPRESSION SCREENING 03/13/2024 INFLUENZA VACCINE (#1) 2024 DTAP/TDAP/TD VACCINES (2 - T d [...] to complete this topic Insurance [address] [place] [address] [facility] MEDICAID Care Teams Nonprofit Fundraiser Relationship Specialty Start Date End Date Unknown, Provider PCP - General 07/03/17
--- OUTSIDE RECORDS SUMMARY | 2024-09-30 22:49 | XMS_ITS | Clinical Summary ---
Author Organization [facility] Address [address] [place] [address] Phone Care Team Providers Care Toe Puller Name Role Phone Provider, None Primary Care [...] Insurance MEDICAID BL[place] Care Teams Toe Puller Relationship Specialty Start Date End Date Provider, Lowell LEÓN PCP - General 11/22/23
[2024-09-30 22:52] VITALS: BP 123/72; PULSE 83; RESP 18; TEMP 36.6; O2SAT 96
[2024-09-30 23:54] VITALS: BP 119/90; PULSE 80; RESP 16; O2SAT 97
[2024-09-30 23:56] VITALS: BP 119/90; PULSE 75; RESP 18; TEMP 36.4; O2SAT 96
[2024-10-01 00:01] VITALS: BP 128/87; PULSE 79; RESP 14; O2SAT 98
[2024-10-01 00:31] VITALS: BP 126/90; PULSE 78; RESP 16; O2SAT 100
--- NOTE | 2024-10-01 00:31 | ED_ITS ---
HPI - Dizziness General Chief Complaint: Dizziness Stated Complaint: dizziness and headache Time Seen by Provider: 09/30/24 23:55 History of Present Illness HPI Narrative: 29-year-old male presenting to the emergency department for complaints of right- sided ear pain as well as dizziness where he describes a vertiginous sensation especially with standing. Endorses a headache as well as pain going from his right ear and to the back of his throat. Denies any hearing loss. No direct trauma or injury. Ambulates with a steady gait in triage. Endorses subjective fever at home but no chills, myalgias. No difficulty swallowing or pronation changes. No vision changes, facial paralysis or sensation changes in the face or neck. No history of ear infections, no barotrauma history or any insertion in the ear. Related Data Allergies Allergy/AdvReac Type Severity Reaction Status Date / Time amoxicillin Allergy Hives Verified 10/01/24 00:11 Review of Systems 2 Review of Systems: As [facility] Past Medical History Medical History (Updated 10/01/24 @ 02:25 by Ld Lyons MD) Seasonal allergies Surgical History Surgical History No pertinent past surgical history Social History Social History Smoking status: Never smoker Gender identity (if verbalized by the patient): Male Exam 2 Narrative: GENERAL: [Well-appearing, well-nourished, and in no acute distress.] HEAD: [Normocephalic, atraumatic.] EYES: [PERRLA and EOMI.] ENT: Right-sided middle ear effusion is evident with some bulging tympanic membrane, no purulence or otitis externa evident. No proptosis of the auricle. No pain with manipulation of the auricle or palpation of the mastoid process. No posterior or pharyngeal erythema or drainage. Left ear without any evidence of otitis. NECK: Supple. CHEST: [Clear to auscultation. No respiratory distress.] HEART: [Regular rate and rhythm]. No murmur heard. [Normal peripheral pulses.] ABDOMEN: [Soft, nondistended], [nontender], [No rigidity or guarding] EXTREMITIES: Normal range of motion. [No edema.] SKIN: Warm, dry, no rash. NEURO: [No focal deficits]. Alert and oriented [x3.] PSYCH: [Normal mood and affect.] Course Vital Signs Vital signs: Vital Signs Temperature 36.6 C 09/30/24 22:52 Pulse Rate 83 09/30/24 22:52 Respiratory Rate 18 09/30/24 22:52 Blood Pressure 123/72 09/30/24 22:52 Pulse Oximetry 96 09/30/24 22:52 Oxygen Delivery Room Air 09/30/24 22:52 Temperature 36.4 C 09/30/24 23:56 Pulse Rate 75 09/30/24 23:56 Respiratory Rate 18 09/30/24 23:56 Blood Pressure 119/90 09/30/24 23:56 Pulse Oximetry 96 09/30/24 23:56 Oxygen Delivery Room Air 09/30/24 23:54 MDM - Dizziness MDM Narrative Medical decision making narrative: 29-year-old male presenting to the emergency department for complaints of right- sided ear pain as well as dizziness where he describes a vertiginous sensation especially with standing. Endorses a headache as well as pain going from his right ear and to the back of his throat. Denies any hearing loss. No direct trauma or injury. Ambulates with a steady gait in triage. Endorses subjective fever at home but no chills, myalgias. No difficulty swallowing or pronation changes. No vision changes, facial paralysis or sensation changes in the face or neck. No history of ear infections, no barotrauma history or any insertion in the ear. Patient has obvious signs of otitis media in the right ear with bulging tympanic membrane with middle ear effusion. Subjective fever at home. He is afebrile here with normal vital signs. Unremarkable neurological assessment and gait assessment. Patient's symptomatology including right-sided ear pain and sensations of vertigo is likely related secondary to the fluid/infection. Most likely viral versus bacterial in etiology. No present central suspicion for vertigo given reassuring exam and historical features. Will obtain laboratory studies and treat him with antiemetics, Toradol and fluids and 1st dose of antibiotics including cefdinir given his allergy to amoxicillin. Patient will be able to go home after improvement in the ED with regular PCP follow-up. Workup shows no leukocytosis or significant anemia. Normal platelet count. Electrolytes are unremarkable. Normal creatinine, normal glucose, normal LFTs. Patient had some mild improvement in pain after Toradol. Given additional small dose of morphine for analgesia. Will be sent home on cefdinir for otitis media. Patient given return precautions and discharge instructions. Medical Records Attestation: I reviewed the patient's medical records. Lab Data Attestation: I reviewed the patient's lab results. 10/01/24 00:40 10/01/24 00:40 Labs: Lab Results 10/01/24 Range/Units 00:40 WBC 7.8 (4.5-10.0) K/mm3 RBC 4.65 (4.6-6.20) M/mm3 Hgb 12.6 L (14.0-18.0) g/dL Hct 37.6 L (42.0-52.0) % MCV 80.9 (80-100) fl MCH 27.1 (26-34) pg MCHC 33.5 (32-36) g/dl RDW 14.8 H (11.5-14.5) % Plt Count 328 (150-375) k/mm3 MPV 9.8 (7.4-10.4) fl Immature Gran % (Auto) 0.3 (0-0.5) % Neut % (Auto) 51.6 (45.5-73.1) % Lymph % (Auto) 29.9 (18.3-44.2) % [place] % (Auto) 12.6 H (2.6-8.5) % Eos % (Auto) 4.8 H (0-4.4) % Baso % (Auto) 0.8 (0.2-1.2) % Lymph # (Auto) 2.32 (0.9-3.2) K/mm3 [place] # (Auto) 1.0 H (0.1-0.6) K/mm3 Eos # (Auto) 0.4 H (0-0.3) K/mm3 Baso # (Auto) 0.1 (0.0-0.1) K/mm3 Abs Immat Gran (auto) 0.02 (0.00-0.031) K/mm3 Absolute Neuts (auto) 4.0 (1.3-6.7) K/mm3 Absolute Nucleated RBC 0.000 (0.0-0.012) K/mm3 Nucleated RBC % 0.0 (0.0-0.2) % Sodium 136 L (137-145) mmol/L Potassium 3.5 (3.4-5.0) mmol/L Chloride 103 (98-107) mmol/L Carbon Dioxide 25 (22-30) mmol/L Anion Gap 8 (4-12) mmol/L BUN 14 (9-20) mg/dL Creatinine 0.76 (0.7-1.3) mg/dL Estim Creat Clear Calc 161 ml/min Estimated GFR > 60 (59 - ) Glucose 119 H (65-110) mg/dL Calcium 8.7 (8.4-10.2) mg/dL Total Bilirubin 0.3 (0.2-1.3) mg/dL AST 33 (17-59) U/L ALT 22 (6-50) U/L Alkaline Phosphatase 50 (38-126) U/L Total Protein 7.5 (6.3-8.2) g/dL Albumin 4.0 (3.5-5.1) g/dL Discharge Plan Discharge Clinical Impression: Otitis media Patient Disposition: Home Condition: Stable Instructions: Antibiotic Form, Ear Infection (AC), Fluid In The Ear (Serous Otitis Media) (ED) Additional Instructions: Your symptoms are secondary to otitis media which is inflammation, fluid collections and infection in your right-sided middle ear. Will treat this with a course of 10 days of oral antibiotics. We will also send you home with some symptom controlling medications. Take Tylenol and ibuprofen for pain. Return with any emergent concerns. Follow-up via primary care provider on outpatient basis. Patient Language: Syriac Prescriptions: New cefdinir 300 mg capsule 300 mg PO Q12H 10 Days Qty: 20 0RF ondansetron 4 mg tablet,disintegrating 4 mg PO Q8H PRN (Reason: nausea and vomiting) Qty: 10 0RF No Action meclizine 25 mg tablet 25 mg PO TID PRN (Reason: dizziness) Qty: 15 0RF ondansetron 4 mg tablet,disintegrating 4 mg PO Q8H PRN (Reason: nausea and vomiting) Qty: 15 0RF Follow-up/Referrals: Vasquez Rivas MD [Primary Care Provider] - Time of Disposition: 02:25
[2024-10-01] MEDS: ONDANSETRON INJ 4 MG/2 ML VIAL IV PUSH (00:41)
[2024-10-01] MEDS: LACTATED RINGERS 1,000 ML 999 ML IV CONT (00:41)
[2024-10-01] MEDS: KETOROLAC 15 MG/ML VIAL (*BKC) IV PUSH (00:41)
[2024-10-01] MEDS: CEFDINIR 300 MG CAPSULE PO (00:45)
[2024-10-01 00:46] LABS: Hematocrit 37.6 % (42.0-52.0); Hemoglobin 12.6 g/dL (14.0-18.0); Immature Granulocyte Percent A 0.3 % (0-0.5); Lymphocytes Absolute Auto 2.32 K/mm3 (0.9-3.2); Mean Corpuscular HGB Conc 33.5 g/dl (32-36); Mean Corpuscular Hemoglobin 27.1 pg (26-34); Mean Corpuscular Volume 80.9 fl (80-100); Nucleated Red Blood Cells Absolute Auto 0.000 K/mm3 (0.0-0.012); Nucleated Red Blood Cells Perc 0.0 % (0.0-0.2); Platelet Count Result 328 k/mm3 (150-375); Red Blood Count 4.65 M/mm3 (4.6-6.20); White Blood Count 7.8 K/mm3 (4.5-10.0)
--- OUTSIDE RECORDS SUMMARY | 2024-10-01 00:49 | XMS_ITS | Clinical Summary ---
Author Organization [facility] Address [address] [place] [address] Phone Care Team Providers Care Hand Bender Name Role Phone Provider, None Primary Care [...] Insurance MEDICAID [place] Care Teams Hand Bender Relationship Specialty Start Date End Date Provider, Lowell LEÓN PCP - General 11/22/23
--- OUTSIDE RECORDS SUMMARY | 2024-10-01 00:49 | XMS_ITS | Clinical Summary ---
Author Organization [facility] Address [address] [place] [address] Care Team Providers Care Directional Bore Operator Name Role Phone Unknown, Provider Primary Care Provider Unavaila ble Source Comments [facility],non-owned Affiliates and Associated Physician Practices is amultiple site organization consisting of ambulatory clinics and hospital sitesin [place], [place], [place] and [place]. This disclosure is being madepursuant to the Care Everywhere program and may not contain all information available regarding this patient. Last updated 17.[facility] Allergies No known active allergies Medications * [...] on file Legal Sex Male 6:04 PM CO DIRECTOR Gender Identity Not on file Sexual Orientation Not on file Last Filed Vital Signs Vital Sign Reading Time Taken Comments Blood Pressure 122/77 03/28/2017 10:00 PM CO DIRECTOR Pulse 94 03/28/2017 10:00 PM CO DIRECTOR Temperature 38.6 C (101.5 F) 03/28/2017 8:09 PM CO DIRECTOR Respiratory Rate 17 03/28/2017 10:00 PM CO DIRECTOR Oxygen Saturation 96% 03/28/2017 8:17 PM CO DIRECTOR Inhaled Oxygen Concentration - - Weight 90.7 kg (200 lb) 03/28/2017 8:09 PM CO DIRECTOR Height 180.3 cm (5' 11) 03/28/2017 8:09 PM CO DIRECTOR Body Mass Index 27.89 03/28/2017 8:09 PM CO DIRECTOR Plan of Treatment Health Maintenance Due Date [...] to complete this topic Insurance [address] [place] [address] [facility] MEDICAID Care Teams Directional Bore Operator Relationship Specialty Start Date End Date Unknown, Provider PCP - General 07/03/17
[2024-10-01 01:07] LABS: Alanine Aminotransferase 22 U/L (6-50); Albumin Level 4.0 g/dL (3.5-5.1); Alkaline Phosphatase 50 U/L (38-126); Anion Gap 8 mmol/L (4-12); Aspartate Amino Transferase 33 U/L (17-59); Bilirubin,Total 0.3 mg/dL (0.2-1.3); Blood Urea Nitrogen 14 mg/dL (9-20); Calcium 8.7 mg/dL (8.4-10.2); Carbon Dioxide 25 mmol/L (22-30); Chloride 103 mmol/L (98-107); Estimated CRCL calculation 161 ml/min; Estimated Glomerular Filt Rate > 60; Glucose 119 mg/dL (65-110); Potassium 3.5 mmol/L (3.4-5.0); Sodium 136 mmol/L (137-145); Total Protein 7.5 g/dL (6.3-8.2)
[2024-10-01 01:46] VITALS: BP 132/80; PULSE 74; RESP 22; O2SAT 100
[2024-10-01] MEDS: MORPHINE SULFATE (*CRX) 2 MG/ML INJ IV PUSH (02:48)
[2024-10-01 03:27] VITALS: BP 145/83; PULSE 69; RESP 14; O2SAT 99
== END 2024-10-01 03:07 | disposition home or self-care (01) ==
PROVIDERS: Emergency Provider Student in an Organized Health Care Education/Training Program; PCP Family Medicine
DX: H66.91 Otitis media, unspecified, right ear (principal)
CPT/HCPCS: 36415; 80053; 85025; 96361; 96374; 96375; 99284; A9270; J1885; J2270; J2405; J7120

== ENCOUNTER 2025-03-03 19:51 | Emergency (ER) | payer BC, MEDICAID, SELFPAY ==
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
--- OUTSIDE RECORDS SUMMARY | 2025-03-03 19:53 | XMS_ITS | Clinical Summary ---
Author Organization [facility] Address [address] [place] [address] Care Team Providers Care Top Cutter Name Role Phone Unknown, Provider Primary Care Provider Unavaila ble Source Comments [facility],non-owned Affiliates and Associated Physician Practices is amultiple site organization consisting of ambulatory clinics and hospital sitesin [place], [place], [place] and [place]. This disclosure is being madepursuant to the Care Everywhere program and may not contain all information available regarding this patient. Last updated 17.[facility] Allergies No known active allergies Medications * [...] on file Legal Sex Male 6:04 PM DIRECTOR OF STRATEGIC COMMUNICATIONS Gender Identity Not on file Sexual Orientation Not on file Last Filed Vital Signs Vital Sign Reading Time Taken Comments Blood Pressure 122/77 03/28/2017 10:00 PM DIRECTOR OF STRATEGIC COMMUNICATIONS Pulse 94 03/28/2017 10:00 PM DIRECTOR OF STRATEGIC COMMUNICATIONS Temperature 38.6 C (101.5 F) 03/28/2017 8:09 PM DIRECTOR OF STRATEGIC COMMUNICATIONS Respiratory Rate 17 03/28/2017 10:00 PM DIRECTOR OF STRATEGIC COMMUNICATIONS Oxygen Saturation 96% 03/28/2017 8:17 PM DIRECTOR OF STRATEGIC COMMUNICATIONS Inhaled Oxygen Concentration - - Weight 90.7 kg (200 lb) 03/28/2017 8:09 PM DIRECTOR OF STRATEGIC COMMUNICATIONS Height 180.3 cm (5' 11) 03/28/2017 8:09 PM DIRECTOR OF STRATEGIC COMMUNICATIONS Body Mass Index 27.89 03/28/2017 8:09 PM DIRECTOR OF STRATEGIC COMMUNICATIONS Plan of Treatment Health Maintenance Due Date Last Done Comments HIV SCREENING 2008 HEPATITIS C SCREENING 08/30/2011 HEPATITIS B VACCINE (1 of 3 - 19+ 3-dose series) 2012 HPV VACCINE (1 - 3-dose SCDM series) 2020 DEPRESSION SCREENING 03/13/2024 COVID-19 VACCINE (1 - 2024-2 6 season) 2024 INFLUENZA VACCINE (#1) 2024 DTAP/TDAP/TD VACCINES (2 [...] to complete this topic Insurance [address] [place] [address] [facility] MEDICAID Care Teams Top Cutter Relationship Specialty Start Date End Date Unknown, Provider PCP - General 07/03/17
--- OUTSIDE RECORDS SUMMARY | 2025-03-03 19:53 | XMS_ITS | Clinical Summary ---
Author Organization [facility] Address [address] [place] [address] Phone Care Team Providers Care Optometry Teacher Name Role Phone Provider, None Primary Care [...] Insurance MEDICAID BL[place] Care Teams Optometry Teacher Relationship Specialty Start Date End Date Provider, None [place] PCP - General 11/22/23
[2025-03-03 19:56] VITALS: BP 140/89; PULSE 100; RESP 18; TEMP 36.7; O2SAT 98
[2025-03-03 20:41] LABS: Influenza A QL RT-PCR Negative (Negative); Influenza B QL RT-PCR Negative (Negative); RSV RNA, RT-PCR Negative (Negative); SARS-CoV-2 RNA PCR Negative (Negative)
[2025-03-03 21:35] VITALS: O2SAT 98
--- NOTE | 2025-03-03 23:17 | PCRCNOTE ---
Pt not in room breathing TX not given yet.
[2025-03-03] MEDS: IPRATROPIUM 0.5 MG/ALBUTEROL SULFATE 2.5 MG (BASE) AMPUL.NEB 3 ML INHALATION (23:19)
[2025-03-03 23:20] VITALS: PULSE 88; RESP 20
[2025-03-03 23:32] VITALS: PULSE 86; RESP 20
[2025-03-03 23:55] LABS: Strep Group A RT-PCR NOT DETECTED (Negative)
[2025-03-04] MEDS: ACETAMINOPHEN 500 MG TABLET 1000 MG PO (00:03)
[2025-03-04] MEDS: KETOROLAC (*BKC) 60 MG/2 ML VIAL IM (00:06)
[2025-03-04 00:39] VITALS: BP 150/68; PULSE 98; RESP 18; TEMP 36.6; O2SAT 95
--- NOTE | 2025-03-04 03:10 | ED_ITS ---
HPI - General Adult General Chief complaint: Upper Respiratory Infection Stated complaint: throat pain Time Seen by Provider: 03/03/25 21:56 History of Present Illness HPI narrative: 29-year-old male with a past medical history of asthma presenting with concerns for URI symptoms beginning today including a runny nose, congestion, a productive cough, ear pain, subjective fevers, and shortness of breath. States he used his rescue inhaler today without relief. Denies nausea/vomiting/d iarrhea and chest pain. Related Data Allergies Allergy/AdvReac Type Severity Reaction Status Date / Time amoxicillin Allergy Hives Verified 03/03/25 19:52 Review of Systems Review of Systems: All systems reviewed & are unremarkable except as noted in HPI and below PMFSH Past Medical History Medical History (Updated 03/04/25 @ 03:16 by JEANNETTE Gibbons) Seasonal allergies Surgical History Surgical History No pertinent past surgical history Social History Social History Smoking status: Never smoker Gender identity (if verbalized by the patient): Male Exam Narrative: GENERAL: No acute distress. HEAD: Normocephalic, atraumatic. EYES: PERRLA and EOMI. ENT: Nares clear, no rhinorrhea or epistaxis. Mucous membranes moist. Oropharynx without tonsillar hypertrophy exudate or other lesions. Bilateral TMs pearly zendejas non-bulging NECK: Supple. No adenopathy or masses. No carotid bruits or JVD CHEST: Clear to auscultation. No respiratory distress. No wheezes rales or rhonchi HEART: Regular rate and rhythm. No murmur heard. Normal peripheral pulses. ABDOMEN: Soft, nontender, nondistended, normal active bowel sounds. EXTREMITIES: Normal range of motion. No edema. SKIN: Warm, dry, no rash. NEURO: No focal deficits. Alert and oriented x3. PSYCH: Normal mood and affect Course Vital Signs Vital signs: Vital Signs Temperature 98.1 F 03/03/25 19:56 Pulse Rate 100 03/03/25 19:56 Respiratory Rate 18 03/03/25 19:56 Blood Pressure 140/89 03/03/25 19:56 Pulse Oximetry 98 03/03/25 19:56 Oxygen Delivery Room Air 03/03/25 19:56 Temperature 97.8 F 03/04/25 00:39 Pulse Rate 98 03/04/25 00:39 Respiratory Rate 18 03/04/25 00:39 Blood Pressure 150/68 H 03/04/25 00:39 Pulse Oximetry 95 03/04/25 00:39 Oxygen Delivery Room Air 03/03/25 21:35 MDM MDM Narrative Medical decision making narrative: 29-year-old male with a past medical history of asthma presenting with concerns for URI symptoms beginning today including a runny nose, congestion, a productive cough, ear pain, subjective fevers, and shortness of breath. States he used his rescue inhaler today without relief. Denies nausea/vomiting/diarrhea and chest pain. Upon my initial assessment patient appears nontoxic with stable vitals. Physical exam demonstrates clear lung sounds however with patient's history of asthma and reports of shortness of breath, administered a DuoNeb which improved patient's symptoms. Administered Toradol and Tylenol which improved patient's pain. Flu, COVID, RSV, and strep tests were negative. CXR demonstrated no acute abnormalities. Plan to discharge home with an antibiotic for pneumonia treatment and at home DuoNebs. Differential diagnosis and treatment plan were discussed with the patient. Patient agrees with discussion and after shared medical decision making agrees with plan of care. All questions were answered to the patient's satisfaction. The patient is appropriate for outpatient treatment and follow-up. Given reasons to return. Differential Diagnosis Differential Diagnosis: Differential diagnostic considerations for upper respiratory infection include upper respiratory infection, croup, otitis media, sinusitis, viral infection, bronchitis, influenza, pharyngitis, strep, uvulitis. Medical Records I have reviewed the following patient records and this information was taken into consideration when formulating the assessment and plan.: previous labs and previous ER visits Lab Data Labs: Lab Results 03/03/25 03/03/25 Range/Units 20:00 23:28 Influenza A (RT-PCR) Negative (Negative) Influenza B (RT-PCR) Negative (Negative) RSV (RT-PCR) Negative (Negative) SARS-CoV-2 RNA (RT-PCR) Negative (Negative) Group A Strep (PCR) Not detected (Negative) Imaging Data Attestation: I personally reviewed and interpreted this imaging study as follows: Radiologist's impression: ITS Impressions Chest X-Ray 03/03/25 23:21 IMPRESSION: 1: NO ACUTE CARDIOPULMONARY DISEASE. Discharge Plan Discharge Clinical Impression: URI (upper respiratory infection), Asthma Patient Disposition: Home Condition: Stable Instructions: Antibiotic Form Additional Instructions: Patient has been advised to remain well-hydrated and get plenty of rest. Take Tylenol or Motrin [id number] for pain as needed. Return to the emergency department if your symptoms worsen or if you experience fever, chest pain, shortness of breath, abdominal pain with nausea and vomiting, weakness, numbness/tingling, or any other symptoms that are concerning to you. Take antibiotics and other medications as prescribed. Follow-up with your primary care provider. Patient Language: Croatian Prescriptions: New (DME) nebulizers Misc See Rx Instructions .Route Qty: 1 0RF Rx Instructions: As directed albuterol sulfate 2.5 mg /3 mL (0.083 %) solution for nebulization 2.5 mg inhalation Q4H PRN (Reason: shortness of breath or wheezing) Qty: 90 0RF doxycycline hyclate 100 mg tablet 100 mg PO BID Qty: 10 0RF No Action meclizine 25 mg tablet 25 mg PO TID PRN (Reason: dizziness) Qty: 15 0RF ondansetron 4 mg tablet,disintegrating 4 mg PO Q8H PRN (Reason: nausea and vomiting) Qty: 15 0RF cefdinir 300 mg capsule 300 mg PO Q12H 10 Days Qty: 20 0RF ondansetron 4 mg tablet,disintegrating 4 mg PO Q8H PRN (Reason: nausea and vomiting) Qty: 10 0RF Follow-up/Referrals: Vasquez Rivas MD [Primary Care Provider, Family Practice] Nguyễn Rosales MD [Physician, Family Practice]
== END 2025-03-04 00:40 | disposition home or self-care (01) ==
PROVIDERS: Emergency Medicine; PCP Family Medicine
DX: J06.9 Acute upper respiratory infection, unspecified (principal); J45.909 Unspecified asthma, uncomplicated; Z20.822 Contact with and (suspected) exposure to COVID-19
CPT/HCPCS: 71046; 87637; 87651; 94640; 96372; 99283; A9270; J1885